=== PATIENT | female | born 1945 | race Caucasian/White ===

== ENCOUNTER 2019-05-26 23:57 | Inpatient (IN) | payer OTHER ==
[~2019-05-26] VITALS: Ht 160 cm; Wt 97.0 kg
[2019-05-27 00:16] LABS: BASOPHILS ABSOLUTE AUTO 0.06 K/mm3 (0.00-0.23); BASOPHILS PERCENT AUTO 1 % (0-2); EOSINOPHILS ABSOLUTE AUTO 0.52 K/mm3 (0.00-0.68); EOSINOPHILS PERCENT AUTO 4 % (0-6); Hematocrit 46.6 % (33.0-51.0); Hemoglobin 15.4 g/dL (11.5-16.0); IMMATURE GRAN ABSOLUTE AUTO 0.03 K/mm3 (0.00-0.10); IMMATURE GRAN PERCENT AUTO 0 % (0-1); LYMPHOCYTES ABSOLUTE AUTO 4.81 K/mm3 (0.84-5.20); LYMPHOCYTES PERCENT AUTO 41 % (21-46); MONOCYTES ABSOLUTE AUTO 1.07 K/mm3 (0.16-1.47); MONOCYTES PERCENT AUTO 9 % (4-13); Mean Corpuscular HGB 31.8 pg (26.0-34.0); Mean Corpuscular Volume 96 fL (80-100); Mean Platelet Volume 9.8 fL (9.1-12.4); NEUTROPHILS ABSOLUTE AUTO 5.27 K/mm3 (1.96-9.15); NEUTROPHILS PERCENT AUTO 45 % (41-73); Platelet Count 187 K/mm3 (150-400); RDW Coefficient Variation 14.2 % (11.7-14.2); RDW Standard Deviation 50.8 fL (35.1-46.3); Red Blood Cell Count 4.84 M/mm3 (3.80-5.20); White Blood Cell Count 11.76 K/mm3 (4.00-11.30)
[2019-05-27] MEDS ORDERED: SERT25 PO (00:33)
[2019-05-27] MEDS ORDERED: TRAZ50 PO (00:33)
[2019-05-27] MEDS ORDERED: DONE5 PO (00:33)
[2019-05-27] MEDS ORDERED: ROPI.25 PO (00:33)
[2019-05-27 00:37] LABS: Alanine Aminotransfer (ALT/SGP 19 U/L (12-78); Albumin, Blood 3.7 g/dL (3.4-5.0); Albumin/Globulin Ratio 1.1 (0.8-1.8); Alk Phos 76 U/L (50-136); Anion Gap 7 mmol/L (6-16); Aspartate Aminotrans (AST/SGOT 22 U/L (12-37); Bilirubin, Total 0.2 mg/dL (0.1-1.0); Blood Urea Nitrogen 20 mg/dL (8-24); Bun/Creatinine Ratio 25.1 (12.0-20.0); CO2, Blood 26 mmol/L (21-32); Calcium, Blood 10.7 mg/dL (8.5-10.1); Chloride, Blood 107 mmol/L (98-108); Globulin, Blood 3.5 g/dL (2.2-4.0); Glomerular Filtration Rate >60 (60-); Glucose, Blood 123 mg/dL (70-99); Potassium, Blood 4.4 mmol/L (3.5-5.5); Sodium, Blood 140 mmol/L (136-145); Total Protein, Blood 7.2 g/dL (6.4-8.2); Troponin I 0.111 ng/mL (0.000-0.040)
[2019-05-27 01:37] LABS: PCO2 Arterial 50.4 mmHg (35-45); PO2 Arterial 101 mmHg (80-100)
[2019-05-27 01:38] LABS: pH Blood Arterial 6.97 (7.35-7.45)
[2019-05-27 02:16] LABS: BASOPHILS PERCENT AUTO 1 % (0-2); EOSINOPHILS ABSOLUTE AUTO 0.49 K/mm3 (0.00-0.68); EOSINOPHILS PERCENT AUTO 3 % (0-6); Hematocrit 39.1 % (33.0-51.0); Hemoglobin 12.6 g/dL (11.5-16.0); IMMATURE GRAN ABSOLUTE AUTO 0.21 K/mm3 (0.00-0.10); IMMATURE GRAN PERCENT AUTO 1 % (0-1); LYMPHOCYTES PERCENT AUTO 35 % (21-46); MONOCYTES ABSOLUTE AUTO 1.08 K/mm3 (0.16-1.47); MONOCYTES PERCENT AUTO 6 % (4-13); Mean Corpuscular HGB Conc 32.2 g/dL (31.5-36.5); Mean Platelet Volume 10.3 fL (9.1-12.4); NEUTROPHILS PERCENT AUTO 55 % (41-73); Platelet Count 181 K/mm3 (150-400); RDW Coefficient Variation 14.3 % (11.7-14.2); RDW Standard Deviation 53.2 fL (35.1-46.3); Red Blood Cell Count 3.94 M/mm3 (3.80-5.20); White Blood Cell Count 17.58 K/mm3 (4.00-11.30)
[2019-05-27 02:17] LABS: Mean Corpuscular Volume 99 fL (80-100)
[2019-05-27 02:52] LABS: International Normalized Ratio 1.08; Prothrombin Time Results 11.4 Sec (9.7-11.5)
[2019-05-27 02:58] LABS: PO2 Arterial 72.3 mmHg (80-100)
--- NOTE | 2019-05-27 03:28 | NUR ---
UPDATE: PT TO ROOM AT APPRX 0214. PT NON-RESPONSIVE NOT SEDATED AT THAT TIME. PT ARRIVED WITH AMIODARONE gtt AT 1mg/min STARTED AT APPROX 0030. LEVOPHED gtt AT 15 mcg/min; AGGRISTAT AT 0.151 mcg/kg/min. SODIUM BICARB gtt STARTED, PROPOFOL gtt STARTED. DR. WASHINGTON TO BEDSIDE SHORTLY AFTER PT ARRIVAL. EKG DONE AND CALLED IN TO DR. BARTLETT. DR. WASHINGTON IN DEPARTMENT CALL TO DR. BARTLETT. TO COMMUNICATION WITH ONLY CHANGE WAS TO BICARG gtt RATE. NO FURTHER ORDERS GIVEN FROM DR. BARTLETT. PT'S DAUGHTER CURRENTLY AT BEDSIDE TO WHICH PT RESPONDED TO DAUGHTER'S QUESTION-PT SHOOK HER HEAD NO. VITALS CURRENTLY STABLE. PT'S CORE TEMP 95.[address] WASHINGTON STATEDS WOULD NOT NEED FURTHER COOLING. WILL CONTINUE TO MONITOR.
[2019-05-27 03:52] LABS: Troponin I 0.478 ng/mL (0.000-0.040)
[2019-05-27 03:54] LABS: Magnesium, Blood 2.1 mg/dL (1.6-2.4)
[2019-05-27 03:55] LABS: Alanine Aminotransfer (ALT/SGP 107 U/L (12-78); Albumin, Blood 2.3 g/dL (3.4-5.0); Alk Phos 51 U/L (50-136); Anion Gap 13 mmol/L (6-16); Aspartate Aminotrans (AST/SGOT 133 U/L (12-37); Bilirubin, Direct <0.1 mg/dL (0.0-0.3); Bilirubin, Indirect Unable to Calculate mg/dL (0.1-0.7); Bilirubin, Total 0.2 mg/dL (0.1-1.0); Blood Urea Nitrogen 19 mg/dL (8-24); Bun/Creatinine Ratio 26.2 (12.0-20.0); CO2, Blood 15 mmol/L (21-32); Chloride, Blood 114 mmol/L (98-108); Creatinine, Blood 0.73 mg/dL (0.40-1.00); Globulin, Blood 2.4 g/dL (2.2-4.0); Glomerular Filtration Rate >60 (60-); Glucose, Blood 287 mg/dL (70-99); Phosphorus, Blood 3.1 mg/dL (2.5-4.9); Potassium, Blood 3.2 mmol/L (3.5-5.5); Sodium, Blood 142 mmol/L (136-145)
[2019-05-27 03:56] LABS: Calcium, Blood 7.8 mg/dL (8.5-10.1); Total Protein, Blood 4.7 g/dL (6.4-8.2)
--- NOTE | 2019-05-27 05:23 | NUR ---
RHYTHM CONVERSION: PT RHYTHM CONVERTED TO SINUS RHYTHM HR 60'S, SEE RHYTHM STRIPS.
--- NOTE | 2019-05-27 06:19 | NUR ---
DR. WASHINGTON NOTIFIED: RE: LACTIC ACID RESULTS OF 3.2 AND SECOND 4.3. NO NEW ORDERS AT THIS TIME.
--- NOTE | 2019-05-27 07:15 | NUR ---
ASSUMED CARE REPORT FROM OFF GOING RN. PT. VIN IN BED, NO PURPOSEFUL MOVEMENT AT THIS TIME, DOES WITHDRAW FROM PAINFUL STIMULI. PT SEDATED AND INTUBATED, AC 16, TV 420, 50%, PEEP 5. SHEATH IN PLACE TO LLQ ALONG WITH CENTRAL LINE, SOFT AROUND SITE, SMALL AMOUNT OF OOZING NOTED. PT. HAS ART LINE IN PLACE. LEVOPHED CURRENTLY INFUSING AT 10MCG/KG/MIN, AMIO GTT INFUSING AT 0.5MG/MIN, AGGRESTAT 0.151 MCG/KG/MIN, AND SODIUM BICARB INFUSING AT 75ML/HR WITH LR AT 75ML/HR. PROPFOL INFUSING AT 30MCG/KG/MIN. PT. BECOMING RESTLESS IN BED, MEDICATED WITH 50MCG AND PROPOFOL INCREASED TO 40MCG/KG/MIN. PT LOG ROLLED TO REMOVE EXCESS LINEN. PT. HAS BETTS IN PLACE DRAINING TO GRAVITY. PT TEMP 97.9 THIS AM, COOLING MEASURES TO BE INITIATED.
--- NOTE | 2019-05-27 07:29 | NUR ---
REPORT GIVEN TO INDIGO BUTLER AND HOWARD BUTLER. BEDSIDE, CL AND GTTS ASSESSED. PT TEMP TRENDING UP. COOLING PUMP IN ROOM FOR SET UP. PT'S DAUGHTER CONTINUES IN ROOM.
--- NOTE | 2019-05-27 07:40 | NUR ---
DIFFICULTY GETTING A GOOD ART LINE READING AT THIS TIME ART LINE ZEROED AND FLUSHED, UNABLE TO WITHDRAW BL0OD VIA SAFESET. ABD. NOW HAS HARD SOFTBALL SIZED KNOT FORMING TO LEFT ABD. PRESSURE HELD AT THIS TIME TO SITE. CALL TO DR. WASHINGTON TO UPDATE AT THIS TIME, JAMAL RN TO PLACE PICC LINE AT THIS TIME, CALL TO DR. BARTLETT TO UPDATE ON HEMATOMA, AGGRASTAT DC'D AT 0742 PRESSURE CONTINUES TO BE HELD. CLAIM APPROVER CALLED TO ASSESS SHEATH PLACMENT. LEVOPHED GTT INCREASED TO 15MCG/KG/MIN, PT BECOMING INCREASINGLY HYPOTENSIVE SEE FLOWSHEET. JAMAL BUTLER AT BEDSIDE TO PLACE PICC LINE AT 0750. LEVOPHED GTT INCREASED TO 20MCG/KG/MIN AT THIS TIME. UNABLE TO OBTAIN PERIPHERAL BP. PT HAS VERY FAINT PULSES TO RADIALS BILAT. MANUAL BP ATTEMPTED UNABLE TO OBTAIN. [address], LEVOPHED GTT PLACED TO PICC LINE AND 500CC BOLUS INTITATED. XRAY AT BEDSIDE FOR LINE PLACEMENT.
--- NOTE | 2019-05-27 08:58 | NUR ---
HYPOTENSIVE DR. WASHINGTON AT BEDSIDE. DOPAMINE GTT INTITATED AT 5MCG/KG/MIN. GLASS FINISHER AT BEDSIDE. DOPAMIN TO BE TTITRATED FOR MAP >65. FIRST ASSIST STAFF AT BEDSIDE TO EVALUATE SHEATH PLACEMENT AND SITE AT THIS TIME. HEMATOMA IMPROVING, PT NO JUST HAS A SMALL HARD KNOT TO LLQ. PICC LINE VERIFIED VIA XRAY. PT OOZING FROM SITE. EXTREMITIES COLD TO TOUCH. PT. CONTINUES TO BANUELOS. FAMILY REMAINS AT BEDSIDE. COOLING BLANKETS IN PLACE.
[2019-05-27 09:19] LABS: BASOPHILS ABSOLUTE AUTO 0.07 K/mm3 (0.00-0.23); BASOPHILS PERCENT AUTO 0 % (0-2); EOSINOPHILS ABSOLUTE AUTO 0.03 K/mm3 (0.00-0.68); EOSINOPHILS PERCENT AUTO 0 % (0-6); Hematocrit 37.3 % (33.0-51.0); Hemoglobin 12.2 g/dL (11.5-16.0); IMMATURE GRAN ABSOLUTE AUTO 0.22 K/mm3 (0.00-0.10); IMMATURE GRAN PERCENT AUTO 1 % (0-1); LYMPHOCYTES ABSOLUTE AUTO 2.63 K/mm3 (0.84-5.20); LYMPHOCYTES PERCENT AUTO 11 % (21-46); MONOCYTES ABSOLUTE AUTO 2.87 K/mm3 (0.16-1.47); MONOCYTES PERCENT AUTO 12 % (4-13); Mean Corpuscular HGB 32.1 pg (26.0-34.0); Mean Corpuscular HGB Conc 32.7 g/dL (31.5-36.5); Mean Corpuscular Volume 98 fL (80-100); Mean Platelet Volume 10.1 fL (9.1-12.4); NEUTROPHILS ABSOLUTE AUTO 18.35 K/mm3 (1.96-9.15); NEUTROPHILS PERCENT AUTO 76 % (41-73); Platelet Count 268 K/mm3 (150-400); RDW Coefficient Variation 14.6 % (11.7-14.2); RDW Standard Deviation 53.1 fL (35.1-46.3); White Blood Cell Count 24.17 K/mm3 (4.00-11.30)
[2019-05-27 09:28] LABS: PCO2 Arterial 45.4 mmHg (35-45); PO2 Arterial 63.4 mmHg (80-100); pH Blood Arterial 7.32 (7.35-7.45)
[2019-05-27 09:47] LABS: Bun/Creatinine Ratio 17.3 (12.0-20.0); Calcium, Blood 8.3 mg/dL (8.5-10.1); Creatinine, Blood 1.1 mg/dL (0.40-1.00); Phosphorus, Blood 2.3 mg/dL (2.5-4.9); Potassium, Blood 3.8 mmol/L (3.5-5.5)
--- NOTE | 2019-05-27 10:39 | NUR ---
FAMILY UPDATED ON CONDITION FAMILY ASSISTED TO FILL OUT CONTACT LIST. PT SON SAM TO BE PRIMARY CONTACT AND TO UPDATE FAMILY MEMBERS.
--- NOTE | 2019-05-27 10:45 | NUR ---
echocardiogram completed
--- NOTE | 2019-05-27 14:00 | NUR ---
DR. BARTLETT AT BEDSIDE PER RN REQUEST TO REASSESS SHEATH, AND DISCUSS PLANS FOR REMOVAL. SHEATH HAS REMAINED SALINE LOCKED SINCE THIS AM WHEN ARTLINE WAS NO LONGER READING, UNABLE TO ASPIRIATE FROM SHEATH. PER. DR. BARTLETT OKAY TO PULL SHEATH AT THIS TIME. PTT TO BE OBTAINED FIRST. CLARIFIED WITH DR. BARTLETT THAT THIS RN DID NOT FEEL COMFORTABLE PULLING THE SHEATH DUE TO LOCATION. WOMEN'S STUDIES PROFESSOR STAFF TO ASSIST THIS RN WITH SHEATH PULL.
--- NOTE | 2019-05-27 14:33 | NUR ---
Initial Pal Care assessment. Referral received from HEAVY THREADER this am and request for visit taylor. Pt is a 74 yr old female who was brought to ER and found to be experiencing a STEMI. On the way to the boat laborer pt had v-tach and underwent both shocks and also CPR in ER before getting to boat laborer and undergoing stenting. Pt currently in ICU, vented, sedated, was following commands of squeezing RN's hand prior to increased sedation. BP was extremely low after procedure and pressors started. RN reports that Kailee, who was at bedside this am was distraught. There are multiple children (5), grandchildren gathering. When I arrived, pt's kailee, who was having difficulty processing and understanding all that occured had left. Present, were pt's son, dil and granddaughter. I introduced myself and spoke with family for a few minutes, offered support and encouragement. Son has some medical backround and all three family members were calm, supporting each other and speaking to pt, despite sedation. Pt assessed. She did not appear to be in pain or distress at that time. RN reported she had been medicated for pain earlier. Family aware that the next 24-48 hours of "wait and see" period is critical for pt. Instructed family that we would be checking in daily for support and assist as indicated/needed and would return upon request. Son given instructions on how to reach us by phone or thru staff. Talent Development Director notified of potential need for additional support to family also.
--- NOTE | 2019-05-27 17:26 | NUR ---
CLAIMS AUDITOR STAFF AT BEDSIDE TO ASSESS SHEATH STAFF NOT FEELING COMFORTABLE WITH SHEATH PULL DUE TO LOCATION UNLESS DRJacky AT BEDSIDE. CALL TO DR. BARTLETT TO DISCUSS SHEATH PULL AGAIN. PER DR. BARTLETT PLANS TO PULL SHEATH IN THE AM HOWEVER AFTER FURTHER DISCUSSION REGARDING THE SHEATH, BEING UNABLE TO ASPIRATE FROM SHEATH, AND PT NOT CURRENTLY ON ANY HEAPRIN OR AGGRASTAT. PLANS FOR TO COME TO BEDSIDE THIS PM AND PULL SHEATH.
--- NOTE | 2019-05-27 17:30 | NUR ---
CALL PLACED TO DR WASHINGTON Notified provider of pt's CBG. Orders given for insulin. PTT pending. Awaiting Dr Lan for arterial sheath removal. No family members in room at this time.
--- NOTE | 2019-05-27 18:13 | NUR ---
DR. BARTLETT AT BEDSIDE. HEMATOMA THAT WAS PREVIOUSLY IDENTIFIED MARKED 6INCH LONG BY APPROX 2.5INCH WIDE ALONG LLQ. DR. BARTLETT INITIATED SHEATH PULL. PRESSURE HELD MANUALLY BY DR. BARTLETT THEN HAND OFF TO HEART CENTER STAFF CINDY. DR. BARTLETT REMAINS AT BEDSIDE DURING SHEATH PULL, CENTRAL LINE PULLED SHORTLY AFTER ARTLINE PULLED BY DR. BARTLETT. MANUAL PRESSURE HELD BY INDIGO BUTLER AND CINDY HEMOSTATIS AFTER 30MIN VIA MANUAL PRESSURE. VERIFIED WITH HEART CENTER STAFF AND DR. BARTLETT. PLANS FOR FREQUENT H&HS Q2 HR TO MONITOR FOR BLEEDING ALONG WITH MANUAL OBSERVATION. ARACELY DRESSING ALONG WITH CLEAR OCCLUSIVE DRESSING IN PLACE. NO FURTHER HEMATOMA NOTED, ABD SOFT. PT REMAINS ON PRESSORS HOWEVER UNCHANGED FROM PRIOR TO SHEATH PULL. PT MEDICATED WITH 50MCG OF FENTANYL DURING SHEATH PULL DUE TO RESTLESSNESS AND COUGHING.
[2019-05-27 18:26] LABS: Hematocrit 35.4 % (33.0-51.0); Hemoglobin 11.8 g/dL (11.5-16.0)
--- NOTE | 2019-05-27 18:42 | NUR ---
SUMMARY At this time, pt on 20 mcg/min of levophed, 2.5 mcg/kg/min dopamine, amiodarone 0.5mg/hr. SBP averaging between 90 and 110. Pt converts between sinus rhythm/sinus bradycardia and atrial fibrillation. 3-7 beat runs of wide QRS tachycardia noted intermittently t/o shift. Pt remains on 40 mcg/kg/min propofol. Ventilator AC 16, vT 420, FiO2 50%, PEEP 5. SpO2 90% or greater. Small amount of red sputum from in-line suction. Hematoma noted to left groin this AM has improved. Hematoma marked prior to removal of femoral arterial sheath and femoral venous central line. No leakage noted to site. PICC to BHAVESH. Significant leakage noted from site. One dressing change performed. Small amount of leakage noted since dressing change. Pt has not had a BM this shift. Pt has had 650 mL urine output from mitchell catheter. Will continue to closely monitor until care handoff and bedside report with oncoming RN. Cooling blanket remains in place. Temp 97.2 currently.
--- NOTE | 2019-05-27 18:45 | NUR ---
WASTE DOCUMENTATION 50MCG OF FENTANYL WAS PULLED BY JAMLA BUTLER FOR ADDITIONAL SEDATION HOWEVER DID NOT END UP NEEDING. WASTED WITH HOWARD BUTLER.
[2019-05-27 20:29] LABS: Hematocrit 33.6 % (33.0-51.0); Hemoglobin 11.3 g/dL (11.5-16.0)
--- NOTE | 2019-05-27 21:25 | NUR ---
[place] of Care: Care assumed at 1900hr. Patient intubated with 7.5 ETT, 23 at teeth. Ventilator to AC 14/420/5/50%, O2-96-98%. Patient appeared to attempt to open eyes to verbal stimuli, and withdraws to painful stimuli, not following any commands. Propofol at 40mcg/kg/min, and x1 dose prn fentanyl given for s/s of pain/discomfort, good effect noted. Levophed infusing at 20mcg/min, and Dopamine at 2.5mcg/kg/min, BP and HR stable at this time, will continue to monitor and titrate as indicated. LR infusing at 75ml/hr, and Sodium Bicarb infusing at 75ml/hr. PICC line to BHAVESH patent and intact, infusing without difficulty. OG tube turned to continuos suction for approx 2min at shift change, small amount of brown drainage noted. OG then clamped after administering PT scheduled medications. Hearth rhythm shows A-fib, rate 60's-70's. Khan cath patent and intact, draining clear yellow urine, adequate output noted at this time. Family at bedside. Bilateral soft wrist restraints in place to protect lines, tubes, cords. Will continue to monitor for pain, safety, comfort.
[2019-05-27 23:22] LABS: Hematocrit 31.4 % (33.0-51.0); Hemoglobin 10.7 g/dL (11.5-16.0)
[2019-05-28 02:15] LABS: Hemoglobin 10.4 g/dL (11.5-16.0)
[2019-05-28 04:45] LABS: BASOPHILS ABSOLUTE AUTO 0.06 K/mm3 (0.00-0.23); BASOPHILS PERCENT AUTO 0 % (0-2); EOSINOPHILS ABSOLUTE AUTO 0.19 K/mm3 (0.00-0.68); EOSINOPHILS PERCENT AUTO 1 % (0-6); Hematocrit 29.4 % (33.0-51.0); Hemoglobin 9.9 g/dL (11.5-16.0); IMMATURE GRAN ABSOLUTE AUTO 0.05 K/mm3 (0.00-0.10); IMMATURE GRAN PERCENT AUTO 0 % (0-1); LYMPHOCYTES ABSOLUTE AUTO 3.62 K/mm3 (0.84-5.20); LYMPHOCYTES PERCENT AUTO 21 % (21-46); MONOCYTES ABSOLUTE AUTO 2.15 K/mm3 (0.16-1.47); MONOCYTES PERCENT AUTO 12 % (4-13); Mean Corpuscular HGB 31.8 pg (26.0-34.0); Mean Corpuscular HGB Conc 34.1 g/dL (31.5-36.5); NEUTROPHILS ABSOLUTE AUTO 11.32 K/mm3 (1.96-9.15); NEUTROPHILS PERCENT AUTO 65 % (41-73); Platelet Count 177 K/mm3 (150-400); RDW Coefficient Variation 13.9 % (11.7-14.2); RDW Standard Deviation 47.7 fL (35.1-46.3); Red Blood Cell Count 3.11 M/mm3 (3.80-5.20); White Blood Cell Count 17.39 K/mm3 (4.00-11.30)
[2019-05-28 04:47] LABS: Mean Corpuscular Volume 93 fL (80-100)
[2019-05-28 04:52] LABS: PCO2 Arterial 43.7 mmHg (35-45); PO2 Arterial 61.7 mmHg (80-100); pH Blood Arterial 7.45 (7.35-7.45)
[2019-05-28 05:03] LABS: Alanine Aminotransfer (ALT/SGP 104 U/L (12-78); Albumin, Blood 2.3 g/dL (3.4-5.0); Albumin/Globulin Ratio 0.9 (0.8-1.8); Alk Phos 59 U/L (50-136); Anion Gap 6 mmol/L (6-16); Aspartate Aminotrans (AST/SGOT 179 U/L (12-37); Bilirubin, Total 0.4 mg/dL (0.1-1.0); Blood Urea Nitrogen 16 mg/dL (8-24); Bun/Creatinine Ratio 17.7 (12.0-20.0); CO2, Blood 31 mmol/L (21-32); Calcium, Blood 8.5 mg/dL (8.5-10.1); Chloride, Blood 105 mmol/L (98-108); Creatinine, Blood 0.91 mg/dL (0.40-1.00); Globulin, Blood 2.6 g/dL (2.2-4.0); Glomerular Filtration Rate >60 (60-); Glucose, Blood 158 mg/dL (70-99); Magnesium, Blood 1.9 mg/dL (1.6-2.4); Phosphorus, Blood 2.5 mg/dL (2.5-4.9); Potassium, Blood 3.2 mmol/L (3.5-5.5); Sodium, Blood 142 mmol/L (136-145); Total Protein, Blood 4.9 g/dL (6.4-8.2)
--- NOTE | 2019-05-28 06:15 | NUR ---
Shift Summary: Remains intubated, AC- 14/420/5/40-45%, O2-94-98%. Propofol gtt increased from 40mcg to 50mcg/kg/min throughout shift. Patient able to wake (on 40mcg/kg/min propofol), and follow commands (squeeze hands, nod head), but becomes very restless, thrashing in bed and difficult to calm. Increase in propofol and x3-4 doses of prn fentanyl effective to calm patient. VSS throughout shift. Levophed gtt decreased from 20mcg/min to 16mcg/min (see flowsheet), Dopamine gtt remained at 2.5mcg/kg/min throughout shift. Khan cath remains patent and intact, draining light yellow clear urine, approx 2400ml output this shift. PICC line to BHAVESH remains patent and intact. Bilateral groin sites remain wnl, no s/s of active bleeding noted. Patient appears calm and comfortable at this time. Will continue to monitor until report to day shift RN.
[2019-05-28 06:49] LABS: Hematocrit 28.2 % (33.0-51.0); Hemoglobin 9.5 g/dL (11.5-16.0)
--- NOTE | 2019-05-28 07:15 | NUR ---
BEGINNING OF SHIFT Assumed care at 0700 with Asia BUTLER. Bedside report recieved from Christian BUTLER. Pt agitated, pulling on restraints. Ativan and fentanyl administered. Cooling blanket in place. Plans to ask provider if blanket is to be removed as it has been in place for 24 hours.
--- NOTE | 2019-05-28 07:45 | NUR ---
DAUGHTER AT BEDSIDE Pt's daughter, Christine, at bedside. Daughter inquires about medications pt is receiving and cooling blanket. Update provided.
[2019-05-28 08:30] LABS: Hematocrit 28.5 % (33.0-51.0); Hemoglobin 9.6 g/dL (11.5-16.0)
--- NOTE | 2019-05-28 10:10 | NUR ---
PT'S GTT'S AND GROIN SITES CHECKED WITH NOCT RN. LEVOPHED AT 16MCG, DOPAMINE AT 2.5MCG, BICARB GTT AND LR INFUSING. BP STABLE W MAPS >65. LEFT GROIN/ABD HEMATOMA UNCHANGED FROM NOCT RN'S ASSESSMENT. PT GRIMACES WITH LIGHT PALP TO AREA. PT'S HEAD TURNING FROM SIDE TO SIDE, PT VERY RESTLESS. PROPOFOL AT 50MCG. ATIVAN 2MG AND FENT 50MCG GIVEN FOR PAIN AND SEDATION. COOLING BLANKET ON, CORE TEMP READING 97. SKIN VERY COOL WITH POOR PERIPHERAL PERFUSION T/O. DR BARTLETT IN TO SEE PT THIS AM, AND SPOKE TO PT'S DAUGHTER WHOM IS AT BEDSIDE. DR WASHINGTON IN THIS AM TO SEE PT. K+ WILL BE REPLACED. COLLING BLANKET ROMOVED, WILL BEGIN PASIVE REWARMING. TF TO BE STARTED. DAUGHTER AGAIN UPDATED BY DR WASHINGTON.
--- NOTE | 2019-05-28 11:22 | NUR ---
UPDATE Dr Lan in to see pt at 0920. Disucussed groin site. Discussed blood pressure support. Updated provider that pt has remained in sinus rhythm for previous shift and is no longer having runs of wide QRS tachycardia. This RN inquired about amiodarone as it has been infusing at 0.5 mg/min for [address] Lan stated he would like amiodarone to remain in place until pt is extubated and vasopressors have been decreased. Levophed infusing at 16 mcg/min. Dopamine 2.5 mcg/kg/min. MAP averaging between 65 and 70. HR averaging between 70 [address] 80[address] Pardo in to see pt around 0945. Provider updated that pt has woken up and followed commands on 40 mcg/kg/min propofol per previous shift. Provider stated plan to begin rewarming. Cooling blanket removed. Hypokalemia discussed. New orders entered by provider. Provider also states plan to begin tube feedings. At this time, pt's daughter has departed. No family at bedside at this time. Temp 97.3 per temp mitchell.
--- NOTE | 2019-05-28 12:10 | NUR ---
UPDATE Pt's son, Eliseo, called unit for update. Update provided.
--- NOTE | 2019-05-28 14:00 | NUR ---
UPDATE Levophed down to 14 mcg/min. MAP averaging between 65 and 70. Pt's son at bedside. Updated on plan of care.
--- NOTE | 2019-05-28 16:44 | NUR ---
CALL PLACED TO DR WASHINGTON This RN placed call to Dr Washington at 1635 to notify that pt is febrile, with temp of 100.4 per temp mitchell. New orders received. Discussed that pt is not on antibiotics. Sputum culture pending.
--- NOTE | 2019-05-28 17:43 | NUR ---
Pal Spiritual Care intial visit: I met with pts dtr at bedside. She later told me she "is not actually her dtr" but feels like pt has been "like a mom" to her. She also told me that pt has recently become a Mandaen. We prayed together at bedside for pt's continued healing. No concerns or fears presented dtr told me that family is releived pt is going to survive. Mrs. Patel appeared comfortable and non-responsive throughout visit. Health Information Technologist Services will remain available.
--- NOTE | 2019-05-28 17:56 | NUR ---
DR WASHINGTON IN TO SEE PT Provider at bedside at 1715 to round on pt. Discussed fever. No new orders at this time.
--- NOTE | 2019-05-28 18:40 | NUR ---
SUMMARY Pt has not followed commands this shift. Pt on proprofol 40 mcg/kg/min. Pt has received ativan and fentanyl for agitation, tossing head back and forth, and pulling on restraints. Pt remains on vent AC 16, vT 420, PEEP 5, FiO2 45%. SpO2 90% or greater. Scant amount of bloody sputum from in-line suctions. Pt has been in sinus rhythm for entire shift. No episodes of wide QRS tachycardia. Remains on amiodarone 0.5 mg/min, levophed 14 mcg/min, dopamine 2.5 mcg/kg/min. No changes to bilateral groin sites. PAS for VTE prophylaxis.
--- NOTE | 2019-05-28 19:18 | NUR ---
[place] of Care: Patient intubated, sedated with propofol at 40mcg/kg/min. Ventilator to AC-14/420/5/40%, O2-98-100%, ETT 7.5, 23cm at lip. Patient appears calm and comfortable at this time, responds to painful stimuli, but not following any commands at this time. Dopamine gtt at 2.5 mcg/kg/min, Levophed increased from 14 to 16mcg/min per MAP of 49, will continue to monitor and titrate as indicated. Tube feed per OG tube is Vital High protein at 20ml/hr, with 30ml/4hr H2O flush. Will increase tube feed to goal of 25ml/hr at approx 0100hr if no s/s of GI intolerance. Bilateral groin access sites appear wnl, no s/s of active bleeding/hematoma. Will continue to monitor for pain, comfort, safety.
[2019-05-29 04:38] LABS: BASOPHILS ABSOLUTE AUTO 0.06 K/mm3 (0.00-0.23); BASOPHILS PERCENT AUTO 1 % (0-2); EOSINOPHILS ABSOLUTE AUTO 0.28 K/mm3 (0.00-0.68); EOSINOPHILS PERCENT AUTO 2 % (0-6); IMMATURE GRAN ABSOLUTE AUTO 0.04 K/mm3 (0.00-0.10); IMMATURE GRAN PERCENT AUTO 0 % (0-1); LYMPHOCYTES ABSOLUTE AUTO 2.35 K/mm3 (0.84-5.20); LYMPHOCYTES PERCENT AUTO 19 % (21-46); MONOCYTES ABSOLUTE AUTO 1.21 K/mm3 (0.16-1.47); MONOCYTES PERCENT AUTO 10 % (4-13); Mean Corpuscular HGB 31.4 pg (26.0-34.0); Mean Corpuscular HGB Conc 33.3 g/dL (31.5-36.5); Mean Corpuscular Volume 94 fL (80-100); Mean Platelet Volume 9.9 fL (9.1-12.4); NEUTROPHILS ABSOLUTE AUTO 8.26 K/mm3 (1.96-9.15); NEUTROPHILS PERCENT AUTO 68 % (41-73); Platelet Count 141 K/mm3 (150-400); RDW Coefficient Variation 14.5 % (11.7-14.2); RDW Standard Deviation 49.7 fL (35.1-46.3); Red Blood Cell Count 2.55 M/mm3 (3.80-5.20)
[2019-05-29 05:03] LABS: PCO2 Arterial 45.2 mmHg (35-45); PO2 Arterial 66.5 mmHg (80-100); pH Blood Arterial 7.45 (7.35-7.45)
[2019-05-29 05:04] LABS: Magnesium, Blood 1.8 mg/dL (1.6-2.4)
[2019-05-29 05:05] LABS: Albumin, Blood 2.2 g/dL (3.4-5.0); Albumin/Globulin Ratio 0.8 (0.8-1.8); Bilirubin, Total 0.7 mg/dL (0.1-1.0); Bun/Creatinine Ratio 12.4 (12.0-20.0); Calcium, Blood 8.8 mg/dL (8.5-10.1); Creatinine, Blood 0.97 mg/dL (0.40-1.00); Globulin, Blood 2.7 g/dL (2.2-4.0); Phosphorus, Blood 1.8 mg/dL (2.5-4.9); Potassium, Blood 3.2 mmol/L (3.5-5.5); Total Protein, Blood 4.9 g/dL (6.4-8.2)
--- NOTE | 2019-05-29 06:33 | NUR ---
Shift Summary: Patient remains intubated/sedated. Propofol titrated between 35-50mcg/kg/min throughout shift. Ventilator to AC 16/420/5/45%, O2-96-100% Tolerated spontaneous breathing trial without difficulty, tidal volumes, respiratory rate, and VS wnl throughout 45-60min trial. Sedation turned off for approx 1hr throughout trial. patient became slightly restless in bed, attempted to open eyes, but otherwise not deirdre to follow any commands. Prn fentanyl and Ativan given x3 this shift for s/s of pain, agitation, restlessness with good effect noted. Levophed titrated down from 16 to 10mcg/min throughout shift, then titrated back up to 14mcg/min at end of shift after placing Dopamine gtt on stand-by. Khan cath remains patent and intact, draining clear yellow urine. PICC line remains patent and intact, infusing medication without difficulty. 30mm kphos ordered per electrolyte protocol this morning, infusing at this time. Patient appears calm and comfortable, will continue to monitor until report to day shift RN.
--- NOTE | 2019-05-29 11:20 | NUR ---
0730: Care assumed, assessment completed. Vent settings AC 16, Vt 420, PEEP 5, FiO2 40%, pt's RR 16, Vt 400's. Propofol 35mcg, levophed 14mcg, LR 75ml/hr, amiodarone 0.5mg, sodium phosphate 102ml/hr, vital high protein 30ml/hr. Pt appears to be adequately sedated, no agitation or restlessness noted, gross movement in all extrems, pt does not open eyes. Daughter at bedside. 0900: Dr. Jimenez at bedside, propofol off for sedation vacation. 0935: Pt becoming agitated, turning head back and forth, moving hands and feet, does not open eyes. No tracking or following commands at this time, propofol infusion resumed at 35mcg. Daughter remains at bedside. 1100: Propofol off again per Dr. Jimenez, levophed increased to 15mcg for MAP <60. Other VSS. Vent settings unchanged, pt's RR 16 at this time.
--- NOTE | 2019-05-29 13:32 | NUR ---
PROPOFOL REMAINS OFF PER DR. ROLAND, FENTANYL AND ATIVAN PRN FOR COMFORT/AGITATION. PT RESTING QUIETLY AT THIS TIME, NO AGITATION OR RESTLESSNESS NOTED. VENT SETTINGS UNCHANGED. PRBC UNIT #1 INFUSING AT THIS TIME PER ORDERS, TEMP 100.2 PER TEMP PROBE BETTS PRIOR TO INITIATING PRBC INFUSION. TITRATING LEVOPHED DOWN ABLE.
--- NOTE | 2019-05-29 18:16 | NUR ---
1530: FIRST UNIT PRBC'S INFUSED WITHOUT S/SX REACTION, VSS. TITRATING LEVOPHED DOWN, PT TOLERATING WELL. PT RESTING, MEDICATING WITH FENTANYL AND ATIVAN ORDERED. 1814: SECOND UNIT PRBC'S INFUSING PER ORDERS. PT RESTING IN BED, LEVO AT 2MCG, BP STABLE. VENT SETTINGS UNCHANGED, PROPOFOL REMAINS OFF.
--- NOTE | 2019-05-29 18:42 | NUR ---
PT MEDICATED FOR RESTLESSNESS/AGITATION. LEVOPHED OFF, NEXT MAP 55, LEVOPHED RESUMED AT THIS TIME AT 2MCG. AMIODARONE INFUSING AT 0.5MG, DOPAMINE AND PROPOFOL REMAIN OFF. SECOND UNIT PRBC'S INFUSING WITHOUT DIFFICULTY, NO S/SX TRANSFUSION REACTION AFTER FIRST 15 MINUTES. VENT SETTINGS UNCHANGED, PT TOLERATING WELL WITH FENTANYL AND ATIVAN. AC 16, Vt 420, PEEP 5, FIO2 40%. PT FEBRILE T/O DAY, TMAX 100.4, COOL WASHCLOTHS, ICE PACKS TO UNDERARMS, AND FAN ON INTERMITTENTLY T/O SHIFT, NO BLANKETS. PT WITHDRAWING FROM NOXIOUS STIMULI, OPENS EYES OCCASIONALLY, NO TRACKING OR FOLLOWING COMMANDS NOTED THIS SHIFT. GROIN ACCESS SITES REMAIN UNCHANGED FROM THIS AM. TF TOLERATED WELL AT 30ML/HR, RESIDUALS MINIMAL. REPORT TO ONCOMING SHIFT.
--- NOTE | 2019-05-29 21:00 | NUR ---
ASSUMED PT CARE AT 1915 PT INTUBATED WITH VENT SETTINGS: AC 16, TV 420, FIO2 30%, PEEP 5 WITH OXYGEN SATURATIONS MAINTAINING GREATER THAN 91%. PT HAS A 7.5 ETT; THAT IS NOTED TO BE 23CM AT THE LIP; 22CM AT THE GUM LINE. PRODUCTIVE COUGH NOTED TO HAVE MODERATE AMOUNTS OF THICK BROWN/YELLOW SPUTUM WITH STREAKS OF BLOOD NOTED WELL. LUNG SOUNDS ARE COARSE T/O, BUT CLEAR/DIMINISHED AFTER SUCTIONING. PT REMAINS RESPONSIVE TO PAINFUL STIMULI; NO NOTED PURPOSEFUL MOVEMENTS OR ANY FOLLOWING OF COMMANDS. PUPILS PINPOINT AND GAZE BACK AND FORTH TO BOTH SIDES, BUT DOES NOT TRACK WITH HER EYES. PROPFOL HAS BEEN OFF; UTILIZING FENTANYL AND ATIVAN ADJUNCT SEDATION. LEVOPHED AT 2 MCG/MIN WITH LAST UNIT OF BLOOD TRANSFUSING TO HELP SUPPORT BLOOD PRESSURE. LR AT 75MLS/HR. AMIODARONE AT 0.5 MG/MIN. TEMP BETTS IS PATENT AND DRAINING TO GRAVITY WITH TEMPERATURE NOTED TO BE 100.0; ICE PACKS NOTED UNDER BILATERAL ARMPITS. FAMILY HAS BEEN IN AND OUT OF ROOM. PT APPEARS TO BE COMFORTABLE AT THIS TIME. NO SIGNIFICANT CHANGES TO REPORT.
[2019-05-30 04:13] LABS: BASOPHILS ABSOLUTE AUTO 0.02 K/mm3 (0.00-0.23); BASOPHILS PERCENT AUTO 0 % (0-2); EOSINOPHILS ABSOLUTE AUTO 0.18 K/mm3 (0.00-0.68); EOSINOPHILS PERCENT AUTO 2 % (0-6); Hematocrit 24.7 % (33.0-51.0); Hemoglobin 8.4 g/dL (11.5-16.0); IMMATURE GRAN ABSOLUTE AUTO 0.07 K/mm3 (0.00-0.10); IMMATURE GRAN PERCENT AUTO 1 % (0-1); LYMPHOCYTES ABSOLUTE AUTO 1.98 K/mm3 (0.84-5.20); LYMPHOCYTES PERCENT AUTO 21 % (21-46); MONOCYTES ABSOLUTE AUTO 0.78 K/mm3 (0.16-1.47); MONOCYTES PERCENT AUTO 8 % (4-13); Mean Corpuscular HGB 31.7 pg (26.0-34.0); Mean Corpuscular Volume 93 fL (80-100); Mean Platelet Volume 10.3 fL (9.1-12.4); NEUTROPHILS ABSOLUTE AUTO 6.27 K/mm3 (1.96-9.15); NEUTROPHILS PERCENT AUTO 67 % (41-73); Platelet Count 100 K/mm3 (150-400); RDW Coefficient Variation 16.2 % (11.7-14.2); RDW Standard Deviation 54.8 fL (35.1-46.3); Red Blood Cell Count 2.65 M/mm3 (3.80-5.20)
[2019-05-30 04:29] LABS: Anion Gap 6 mmol/L (6-16); Blood Urea Nitrogen 14 mg/dL (8-24); Bun/Creatinine Ratio 16.4 (12.0-20.0); CO2, Blood 26 mmol/L (21-32); Calcium, Blood 8.8 mg/dL (8.5-10.1); Chloride, Blood 107 mmol/L (98-108); Creatinine, Blood 0.86 mg/dL (0.40-1.00); Glomerular Filtration Rate >60 (60-); Glucose, Blood 126 mg/dL (70-99); Magnesium, Blood 1.7 mg/dL (1.6-2.4); Phosphorus, Blood 2.5 mg/dL (2.5-4.9); Potassium, Blood 3.5 mmol/L (3.5-5.5); Sodium, Blood 139 mmol/L (136-145)
--- NOTE | 2019-05-30 06:02 | NUR ---
END OF SHIFT SUMMARY/ SBT PT REMAINS INTUBATED WITH NO CHANGES TO VENT SETTINGS. FAILED SBT THIS MORNING PT WASN'T ABLE TO FOLLOW ANY COMMANDS, NOR PULL TIDAL VOLUMES GREATER THAN 250 WITH RR GREATER THAN 30 WITH PRESSURE SUPPORT OF 7. AFTER A FEW MINUTES OF SBT PT WAS PLACED BACK ON AC MODE. PT HAS REMAINED OFF PROPOFOL T/O SHIFT; MEDICATED WITH FENTANYL AND ATIVAN NEEDED FOR ADJUNCT SEDATION. PUPILS REMAIN PIN POINT WITH GAZE BACK AND FORTH FROM LEFT TO RIGHT; NO TRACKING NOTED. LUNG SOUNDS HAVE BEEN COARSE T/O WITH EXPIRATORY WHEEZES NOTED OCCASIONALLY, BUT ABLE TO CLEAR AFTER SUCTIONING. PT CONTINUES TO PRODUCE MODERATE AMOUNTS OF BROWN, THICK SPUTUM WITH STREAKS OF BLOOD NOTED WELL. PT REMAINS IN NSR WITH FIRST DEGREE AV BLOCK NOTED WITH HR 80-90'S. PT REMAINS VERY EDEMATOUS WITH EXTREMITIES ELEVATED ON PILLOWS MOST OF NIGHT. TMAX OF 100.6; PLACED ICE PACKS UNDER ARMPITS, LEFT UNCOVERED ALL NIGHT WITH FAN ON PT'S FACE, WELL REMOVED SCD'S TO BILATERAL CALVES TO HELP COOL DOWN. PT'S TEMP WAS NOTED TO BE LOW 99.6, BUT QUICKLY INCREASED BACK UP TO 100.6. PT HAS HAD TWO LOOSE BM'S THIS SHIFT. LEVOPHED TITRATED OFF AT ONE POINT THIS SHIFT, BUT CURRENTLY BACK UP TO 2 MCG/MIN WITH MAP >65 MMHG. LR CONTINUES AT 75MLS/HR. AMIODARONE AT 0.5 MG/MIN. REPLACED POTASSIUM PHOS AND MAGNESIUM THIS AM PER ELECTROLYTE PROTOCOL. FAMILY HAS BEEN AT BEDSIDE ALL NIGHT. WILL CONTINUE TO MONITOR UNTIL REPORT IS HANDED OFF TO ONCOMING RN.
--- NOTE | 2019-05-30 11:18 | NUR ---
0745: CARE ASSUMED, ASSESSMENT COMPLETED. PT RESTING QUIETLY IN BED, VENT SETTINGS AC 16, Vt 420, PEEP 5, FIO2 30%, PT TOLERATING SETTINGS WELL. LEVOPHED 2MCG, AMIODARONE 0.5MG, LR 75ML/HR. LS COARSE WITH EXPIRATORY WHEEZES T/O, MODERATE AMOUNT OF BROWN SECRETIONS FROM ETT AT THIS TIME. PT HAD A SMALL BM, ATTENDS CHANGED, PT REPOSITIONED, ORAL CARE COMPLETED. GROIN ACCESS SITES X2 WNL, BRUISING UNCHANGED FROM YESTERDAY AT LEFT ACCESS SITE. PT NOT TRACKING OR RESPONDING PURPOSEFULLY. 0845: TITRATING LEVOPHED FOR MAP <65. 1030: PT AGITATED, COUGHING. ETT SUCTIONING COMPLETED, FENTANYL AND ATIVAN ADMINISTERED PER ORDERS, PT CALMS QUICKLY AFTER MEDICATIONS. 1100: TF RATE CHANGED TO GOAL 50ML/HR PER DIETARY. PT REMAINS CALM, RESTING QUIETLY, VSS. LEVOPHED CURRENTLY AT 6MCG, LR AT 30ML/HR. AMIO GTT AND VENT SETTINGS UNCHANGED. DAUGHTER AT BEDSIDE.
--- NOTE | 2019-05-30 11:30 | NUR ---
MEDICAL SURROGATE DECISION MAKER IS SON, DINESH HART [phone] Prior to my visit, I spoke with covering RN, bedside RN, Dr Jimenez and son, Dinesh, who states he is the medical surrogate decision maker for his mom. Dinesh had called ICU and requested to speak to me. We had met the first day his mom was admitted on 05/27/19 at the bedside. Dinesh wanted an update and had questions re: information he had received from his sister, Deb, who reported to him that pt was being extubated tomorrow and that the Dr's wanted to insert a trach and feeding tube. I clarified that information based on my case conference with Dr Jimenez and explained that would like to be able to wean pt and extubate if she is ready, hoping for tomorrow but if that was not successful she would be reintubated. No trach would be planned at this time but if pt was unable to be weaned in the next week or so, discussion with family re: goals of care, LT needs would take place. I requested that family identify and inform us of patients surrogate decision maker. Dinesh states he is the pt's surrogate decision maker but there is no AD completed that he is aware of. Dinesh is aware that his sister, Deb, may feel differently than the rest of the family about the path to proceed if pt cannot be weaned off vent or cannot swallow. He states his mom has indicated that she would not want long wall mining machine tender ventilatory support to live or long wall mining machine tender feeding by tube to maintain life. Pt has hx of dementia and Parkinson's prior to this event. She lived at home with her kailee, Deb providing meal prep and medication management but was ambulatory and fairly independent in ADL's otherwise. I shared with Dinesh, that felt Pt's chances of returning to her prior level of independence and function were low and he anticipated that she would have moderate to severe disability resulting from the cardiac event, CPR and aftermath of this event. Dinesh verbalized understanding of all of the above. He was assured that no surgery, intervention or decision would be made without his input and consideration. Dr and nurses given POA info to contact with updates, requests, decisions pending etc. When I returned to the room to speak with kailee and assess needs, Kailee had stepped out. Pt is sedated and was medicated recently for agitation and pain. I did not observe any nonverbal indicators of pain, anxiety, distress at this time. Pt is on vent and has had some secretions causing coughing earlier which increased pt's agitation. If able I will return again today to speak with kailee and support her in her grief over pt's event and lack of recovery at this time. Dinesh given my number and hours available this weekend to contact me if needed. Dr Jimenez updated on the above also.
[2019-05-30 12:24] LABS: Hematocrit 25.4 % (33.0-51.0); Hemoglobin 8.7 g/dL (11.5-16.0)
--- NOTE | 2019-05-30 13:36 | NUR ---
1300: PT REQUIRING INCREASING AMOUNTS OF LEVOPHED. GROIN SITES UNCHANGED, NO VOLODYMYR BLOOD FROM ETT SUCTIONING. NOTIFIED OF HYPOTENSION AND LEVOPHED RATE, NEW ORDERS RECEIVED AND CARRIED OUT. PT REPOSITIONED, DAUGHTER AT BEDSIDE. 1330: VSS AT THIS TIME, LEVO AT 6MCG, MAP 68 AFTER BOLUS AND ALBUMIN, HGB STABLE. THIS RN SPOKE TO PT'S SON AND DECISION MAKER, MAU, WHO STATES HE WOULD LIKE FOR PT TO BE DNR STATUS. WILL NOTIFY DR. ROLAND.
--- NOTE | 2019-05-30 14:53 | NUR ---
PALLIATIVE CARE IN TO TALK WITH PT'S DAUGHTER. STATUS CHANGED TO DNR AT THIS TIME PER PT'S SON MAU, DECISION MAKER.
--- NOTE | 2019-05-30 15:54 | NUR ---
Second [facility] Care visit to pt/family today. Called by RN to state that she had been in contact with pt's Son, Thomas and son requests DNR status. Thomas is the medical POA. Staff request that I speak with pt's daughter who has been in and out of the room all day and has been distraught at times. Introduced myself to Deb and explained Palliative Care role and shared my previous conversations with family and her brother since Saturday am when her mom was admitted. Deb was appropriately tearful at times and labile with her expression of emotions. She appeared to be impaired in speech and smelled of etoh. Despite that, she was able to continue the difficult conversation re:her mom's care needs, potentially poor prognosis for meaningful recovery, her code status and the plan A, plan B possibilities/plans for care. We discussed what pt's wishes would be if pt could tell us. Deb confirms that Thomas is his mom's surrogate decision maker. She also states, as Thomas has, that her mom would not want fpc ventilatory support or tube feeding if she is unable to breathe or eat on her own. "If she can't get up and have her cup of coffee in the morning and sit and watch the Young and the Restless, she wouldn't want to keep going". Deb had great difficulty discussing changing her mom's code status to DNR per Thomas's wishes and she acknowledges that if her mom were to code that she will probably ask us to "do everything", but at this time she is in agreement that her mother would not want CPR and/or to be coded again. She verbalizes understanding that pt's code status will be changed to DNR per Thomas's instructions. Informed Deb that no other changes are being made to her mom's care at this time and Drs will proceed with attempting to wean pt off the vent and seek recovery of as much of her function as possible at this time. Informed kailey that if pt doesn't improve we will talk further about plans of care for EOL care and if she does improve we will talk about further care for rehab, etc. Deb was appreciative and very emotional. Time spent holding her while she let grief out. Inquired about her self care and sleep. She has not been home other than to lock her mother's house up. Encouraged her to get the sleep, food, breaks she needs. She said she had left to sleep at her daughter's home a couple of nights. I encouraged quiet presence in pt's room when pt was sedated and resting and soft, soothing conversation with pt and others during more wakeful periods. I encouraged Deb to play her mom's favorite music or TV shows in the room unless any increase in agitation noted. I encouraged her to continue speaking with staff and other family members re: pt's needs. Report given on my visit to Dr Jimenez & Nursing staff. changed code status to DNR. POLST completed based on my conversation and bedside RN's conversation with HC POA. Waiting for signature and then I will process and send copy to Medical Records for scanning into pt's EMR. Plan to f/u tomorrow for support to kailey and ongoing advanced care conversations as indicated.
--- NOTE | 2019-05-30 18:12 | NUR ---
1700: PT MEDICATED FOR AGITATION/RESTLESSNESS, RESPONDS WELL. ATTENDS CHANGED, PT REPOSITIONED, TITRATING LEVO TO KEEP MAP >65. 1814: PT RESTING QUIETLY AT THIS TIME, NO RESTLESSNESS OR AGITATION NOTED. 1844: PT MEDICATED FOR AGITATION, LEVO 4MCG, MAP >65. AMIO 0.5MG, LR 30ML/HR. VENT SETTINGS AC 16, Vt 420, PEEP 5, FIO2 40%, SPO2 MID 90'S, RR 16-22. LS CLEAR AT THIS TIME, DIMINISHED IN BASES, NO WHEEZES OR COARSE BREATH SOUNDS NOTED CURRENTLY. SPUTUM PRODUCTION HAS SLOWED CONSIDERABLY THIS SHIFT TO SMALL AMOUNT OF PINK OUPUT. PT TOLERATING INCREASE IN TF RATE WELL.
--- NOTE | 2019-05-30 18:59 | NUR ---
PT APPEARED TO HAVE SOME DECORTICATE POSTURING THIS SHIFT WHEN RESTRAINTS WERE OFF, DID NOT APPEAR TO BE REACHING FOR ETT. NO TRACKING, NO PURPOSEFUL MOVEMENT. REPORT TO ONCOMING SHIFT.
--- NOTE | 2019-05-30 19:13 | NUR ---
ASSUMED PT CARE PT REMAINS INTUBATED. VENT SETTINGS: AC 16, TV 420, FIO2 40%, PEEP 5. REMAINS OFF PROPOFOL WITH FENTANYL AND ATIVAN BEING USED ADJUNCT SEDATION PRN. LEVOPHED INFUSING AT 4MCG/MIN, LR AT 30MLS/HR, AMIODARONE 0.5MG/MIN. VITAL HIGH PROTEIN INFUSING AT 50MLS/HR. DAUGHTER AT BEDSIDE AND STATED SHE WOULD BE GOING HOME TO HAVE A FAMILY MEETING, BUT HER SISTER WOULD BE BACK TO STAY THE NIGHT. PT REMAINS RESPONSIVE TO NOXIOUS STIMULI, BUT DOES NOT FOLLOW ANY COMMANDS, NOR DOES SHE MAKE ANY PURPOSEFUL MOVEMENTS. NO SIGNIFICANT CHANGES TO REPORT AT THIS TIME.
--- NOTE | 2019-05-31 02:34 | NUR ---
DURING 0200 REPOSITIONING; PT WAS NOTED TO BE COUGHING AND GAGGING ON ETT WITH FACIAL GRIMACING NOTED. ASKED PT TO OPEN HER EYES AND LOOK AT ME; PT ABLE TO DO SO. ASKED PT TO SQUEEZE MY HAND, WHICH SHE WAS ABLE TO DO WITH HER RIGHT HAND; UNABLE TO DO SO WITH HER LEFT. PT SQUINTED EYES TIGHTLY SHUT UPON ATTEMPTING TO ASSESS PUPILS AND GAZE; PT ABLE TO LOOK AND TRACK WITH EYES. UPON SUCTIONING SECRETIONS; PT WOULD LIFT LEFT ARM UP AGAINST THE RESTRAINT. MEDICATED WITH 75MCG OF FENTANYL PER ORDERS FOR ADJUNCT SEDATION AND COMFORT.
[2019-05-31 04:12] LABS: BASOPHILS ABSOLUTE AUTO 0.01 K/mm3 (0.00-0.23); BASOPHILS PERCENT AUTO 0 % (0-2); EOSINOPHILS PERCENT AUTO 0 % (0-6); Hemoglobin 8.9 g/dL (11.5-16.0); IMMATURE GRAN ABSOLUTE AUTO 0.08 K/mm3 (0.00-0.10); IMMATURE GRAN PERCENT AUTO 1 % (0-1); LYMPHOCYTES ABSOLUTE AUTO 0.64 K/mm3 (0.84-5.20); LYMPHOCYTES PERCENT AUTO 7 % (21-46); MONOCYTES ABSOLUTE AUTO 0.32 K/mm3 (0.16-1.47); MONOCYTES PERCENT AUTO 3 % (4-13); Mean Corpuscular HGB 31.2 pg (26.0-34.0); Mean Corpuscular Volume 95 fL (80-100); Mean Platelet Volume 10.5 fL (9.1-12.4); NEUTROPHILS ABSOLUTE AUTO 8.31 K/mm3 (1.96-9.15); NEUTROPHILS PERCENT AUTO 89 % (41-73); Platelet Count 130 K/mm3 (150-400); RDW Coefficient Variation 15.9 % (11.7-14.2); RDW Standard Deviation 55.5 fL (35.1-46.3); Red Blood Cell Count 2.85 M/mm3 (3.80-5.20); White Blood Cell Count 9.36 K/mm3 (4.00-11.30)
[2019-05-31 04:26] LABS: Anion Gap 7 mmol/L (6-16); Blood Urea Nitrogen 22 mg/dL (8-24); Bun/Creatinine Ratio 26.7 (12.0-20.0); CO2, Blood 27 mmol/L (21-32); Calcium, Blood 8.7 mg/dL (8.5-10.1); Chloride, Blood 105 mmol/L (98-108); Creatinine, Blood 0.83 mg/dL (0.40-1.00); Glomerular Filtration Rate >60 (60-); Glucose, Blood 182 mg/dL (70-99); Magnesium, Blood 1.9 mg/dL (1.6-2.4); Phosphorus, Blood 2.6 mg/dL (2.5-4.9); Potassium, Blood 3.6 mmol/L (3.5-5.5); Sodium, Blood 139 mmol/L (136-145)
--- NOTE | 2019-05-31 06:11 | NUR ---
SBT PT NOT MEDICATED PRIOR TO SBT IN ORDER TO OBTAIN BASLINE NEUROLOGICAL STATUS. PT ABLE TO OPEN EYES, TRACK, AND SQUEEZE HAND ON COMMAND. PT SWITCHED TO SPONTANEOUS OF 7 WITH FIO2 40%. PT MAINTAINED RR 24-28, TV GREATER THAN 300, AND OXYGEN SATURATIONS GREATER THAN 90%. VS REMAINED STABLE; ELEVATED UP TO SBP 140 WHEN PT BEGAN GAGGING ON ETT; MEDICATED WITH 50MCG OF FENTANYL FOR COMFORT; HOWEVER, PT STOPPED FOLLOWING COMMANDS AFTER FENTANYL WAS ADMINISTERED. PLACED BACK ON AC MODE AFTER SBT.
--- NOTE | 2019-05-31 06:14 | NUR ---
END OF SHIFT SUMMARY PT HAS IMPROVED NEURO VALLE. AROUND 0200 PT WAS ABLE TO OPEN EYES TO VERBAL COMMAND, FOLLOW AND TRACK WITH HER EYES WITH NO GAZE NOTED, PT ALSO ABLE TO SQUEEZE HAND ON COMMAND. UNABLE TO SHAKE HEAD YES/NO TO QUESTIONS; BECOMES VERY AGITATED AND RESTLESS QUICKLY. MEDICATED WITH FENTANYL FOR MOST OF SHIFT WITH ONLY TWO ADMINISTRATIONS OF ATIVAN PER ORDERS. WILL PASS ON TO DAY SHIFT TO REQUEST A PRECEDEX GTT FOR COMFORT AFTER DR. ASUNCION MCGHEE'S PT'S NEUROLOGICAL STATUS. VENT SETTINGS REMAINED UNCHANGED T/O SHIFT OTHER THAN FOR SBT THIS AM, WHICH PT WAS PLACED BACK ON SAME SETTINGS. LUNG SOUNDS WERE COARSE WITH WHEEZES NOTED AT BEGINNING OF SHIFT, BUT DIMINISHED T/O TOWARD END OF SHIFT. PT REMAINS IN A FIRST DEGREE AV BLOCK WITH NOTED ST ELEVATION; HR 70-80'S. LEVOPHED TITRATED OFF THIS SHIFT; HOWEVER, BLOOD PRESSURES SLOWLY TRENDING BACK DOWN; MIGHT NEED TO PLACE BACK ON A LOW DOSE AT 1-2MCG/MIN. AMIODARONE CONTINUES AT 0.5 MG/MIN. LR AT 30MLS/HR. VITAL HIGH PROTEIN REMAINS AT GOAL OF 50MLS/HR WITH NO RESIDUALS THIS SHIFT. BETTS CATH REMAINS PATENT AND DRAINING TO GRAVITY; 1100 EMPTIED THIS SHIFT OF CLEAR ALEXIA URINE. PT DOESN'T APPEAR TO BE UNCOMFORTABLE AT THIS TIME. WILL CONTINUE TO MONITOR UNTIL REPORT IS HANDED OFF TO DAY RN.
--- NOTE | 2019-05-31 11:13 | NUR ---
0720: CARE ASSUMED, ASSESSMENT COMPLETED. LEVOPHED REMAINS OFF, MAP > 65, AMIO 0.5MG/MIN, HR 80'S. VENT SETTINGS AC 16, Vt 420, FIO2 40%, PEEP 5, RR 18, Vt 400'S, SPO2 >90%. SON AND DAUGHTER AT BEDSIDE, PT RESTING QUIETLY AT THIS TIME, NO AGITATION OR RESTLESSNESS NOTED. EXTREMS ELEVATED ON PILLOWS. GROIN ACCESS SITES WNL. PT NOT FOLLOWING COMMANDS OR TRACKING AT THIS TIME, RECENTLY MEDICATED WITH FENTANYL BY NOC SHIFT. 0800: PT AWAKE, AGITATED AND COUGHING. ANMOL, PT TRACKING AND FOLLOWING SIMPLE COMMANDS, DR. ALATORRE. PT MEDICATED FOR AGITATION, RESPONDING WELL TO FENTANYL. VENT SETTINGS UNCHANGED, VSS, LEVO REMAINS OFF. 0930: DR. ROLAND AT BEDSIDE DISCUSSING PLAN OF CARE WITH PT'S ADULT CHILDREN. PT RESTING QUIETLY, TF INFUSION OFF AT THIS TIME PER DR. ROLAND. 1050: SPONTANEOUS BREATHING TRIAL INITIATED BY RT PER DR. ROLAND. 1120: VENT REMAINS ON SPONTANEOUS SETTING WITH FIO2 40%, SPO2 LOW 90'S, VT'S 480'S, RR 20'S, PT COUGHING OCCASIONALLY BUT OTHERWISE RESTING QUIETLY. ETT SUCTIONED, SMALL AMOUNT OF PINK SPUTUM.
--- NOTE | 2019-05-31 12:16 | NUR ---
PT CONTINUES TO TOLERATE SPONTANEOUS VENT SETTINGS WELL, RR 21, Vt 400'S, SPO2 93%. MAP 80 AT THIS TIME, LEVO REMAINS OFF. FAMILY AT BEDSIDE.
--- NOTE | 2019-05-31 12:18 | NUR ---
AMIODARONE OFF AT THIS TIME PER ORDERS, HR 82 SINUS.
--- NOTE | 2019-05-31 13:06 | NUR ---
1230: PT RESTING QUIETLY IN BED, VSS, PT TOLERATING SPONTANEOUS VENT SETTING WELL, RR 20'S, Vt'S 400'S, SPO2 >90% WITH 40% FIO2. EXP WHEEZES NOTED IN RUL AND RML, WILL NOTIFY RT FOR NEB TX. PT OPENS EYES, TRACKS MOVEMENTS, FOLLOWS COMMANDS, BANUELOS. PT SQUEEZES WITH BOTH HANDS, CERTIFIED MASTER SAFECRACKER ARE EQUALLY WEAK.
--- NOTE | 2019-05-31 14:33 | NUR ---
VSS, SPO2 95%, RR 25, VT 400''S ON SPONTANEOUS VENT SETTING, MAP 106 WIHTOUT PRESSORS. SPOKE WITH DR. ROLAND WHO STATES THAT IF PT CONTINUES TO TOLERATE SPONT. VENT SETTINGS AND HAVE SMALL AMOUNTS OF SECRETIONS, SHE CAN BE EXTUBATED AROUND 1600 IF RT AGREES. RESPIRATORY THERAPIST NOTIFIED. PT'S DAUGHTERS AT BEDSIDE.
[2019-05-31 16:07] LABS: PCO2 Arterial 41.5 mmHg (35-45); pH Blood Arterial 7.43 (7.35-7.45)
[2019-05-31 16:08] LABS: PO2 Arterial 46.8 mmHg (80-100)
--- NOTE | 2019-05-31 16:45 | NUR ---
1645: PT EXTUBATED AT THIS TIME PER DR. ROLAND, OGT REMOVED. LS CLEAR, DIM IN BASES, NO WHEEZES OR COARSE LS NOTED, PT COUGING EFFECTIVELY. 02 8L/ HI FLOW NC, SPO2 94%. RR 36, SHALLOW. HR 101, RHYTHM UNCHANGED. FAMILY REMAINS AT BEDSIDE, WILL UPDATE SAM, DECISION MAKER.
--- NOTE | 2019-05-31 17:27 | NUR ---
PT EXTUBATED SUCCESSFULLY TO NC. PT STILL APPEARS SLEEPY BUT WAKES FOR FAMILY
--- NOTE | 2019-05-31 17:47 | NUR ---
SAM NOTIFIED OF PT CONDITION. PT MEDICATED WITH FENTANYL FOR COMFORT, RR NOW 20'S, SPO2 MID 90'S 8L/HI FLOW NC, MAP >65. PT RESTING, NO AGITATION OR RESTLESSNESS NOTED, FAMILY REMAINS AT BEDSIDE. BIPAP USE OK SHORT TERM IF NECESSARY PER SAM, PT'S DECISION MAKER.
--- NOTE | 2019-05-31 19:10 | NUR ---
ASSUMED CARE OF PT, BEDSIDE REPORT RECEIVED. PT IS RESTING QUIETLY RECLINING IN BED, AROUSES EASILY WITH MOVEMENT OF BLANKETS AND INSPECTION OF GROIN AND ABD ACCESS SITES, DOES NOT FOLLOW COMMANDS AT THIS TIME, DOES APPEAR TO LOCALIZE PAIN AND WITHDRAWS EXTREMITIES FROM NOXIOUS STIMULI, PUPILS EQUAL WITH BRISK REACTION BILAT. LUNGS WITH EXP WHEEZES THROUGHOUT, DIM BASES BILAT, RATE HIGH 30S AT THIS TIME, SATS MID TO UPPER 90S WITH OXYGEN AT 8L/MIN VIA OXYMIZER MASK, PT RESTLESS AND MOANING FREQUENTLY, RT AT BEDSIDE FOR UDN, WILL MONITOR RESTLESSNESS AND ADMIN FENTANYL FOR PAIN IF UDN DOES NOT IMPROVE RESTLESSNESS/MOANING. HRR, RATE 90S, SINUS AT THIS TIME WITH 1ST DEGREE AV BLOCK, PRESSURES MAINTAINING WITH PRESSORS ON STANDBY, PULSES FULL X 4 EXTREMITIES, GENERALIZED NONPITTING EDEMA IS NOTED. ABD DISTENDED, SOFT, NORMOACTIVE BOWEL TONES AT THIS TIME. TEMP PROBE FOEY REMAINS IN PLACE DRAINING CLEAR DARK YELLOW URINE TO GRAVITY. PICC LINE ACCESS TO LEFT UPPER ARM, DRESSING CDI, INFUSING LR AT 30 ML/HR AT THIS TIME, SITE WNL. YEASTLIKE RASH TO ABD FOLDS, NYSTATIN POWDER IS NOTED IN PLACE WILL CONT. PAS STOCKINGS IN PLACE BILAT LOWER EXTREMITIES. SCATTERED BRUISING IS NOTED.
--- NOTE | 2019-05-31 19:25 | NUR ---
1814: PT REPOSITIONED, VS REMAINED STABLE T/O CARES, NO DESAT. PT BECAME AGITATED, MOANING, GRIMACING. MEDICATED WITH FENTANYL PER ORDERS. 1829: PT CALM AND QUIET AT THIS TIME, VS REMAIN STABLE. 1899: LR AT TKO INFUSING, NO OTHER GTT'S, MAP STABLE, SPO2 MID 90'S 8L/HI FLOW NC, OTHER VSS. PT REMAINS QUIET, NO AGITATION OR RESTLESSNESS NOTED. REPORT TO ONCOMING SHIFT.
--- NOTE | 2019-05-31 21:15 | NUR ---
PO MEDS HELD AT THIS TIME SECONDARY TO PT ASPIRATION RISK. PT LETHARGIC AND NOT FOLLOWING COMMANDS, UNCOOPERATIVE WITH ORAL CARE. DISCUSSED WITH OPERATION MANAGER.
[2019-06-01 04:26] LABS: BASOPHILS ABSOLUTE AUTO 0.02 K/mm3 (0.00-0.23); BASOPHILS PERCENT AUTO 0 % (0-2); EOSINOPHILS ABSOLUTE AUTO 0.06 K/mm3 (0.00-0.68); EOSINOPHILS PERCENT AUTO 1 % (0-6); Hematocrit 26.9 % (33.0-51.0); Hemoglobin 8.6 g/dL (11.5-16.0); IMMATURE GRAN ABSOLUTE AUTO 0.12 K/mm3 (0.00-0.10); IMMATURE GRAN PERCENT AUTO 1 % (0-1); LYMPHOCYTES ABSOLUTE AUTO 1.38 K/mm3 (0.84-5.20); LYMPHOCYTES PERCENT AUTO 12 % (21-46); MONOCYTES ABSOLUTE AUTO 1.39 K/mm3 (0.16-1.47); MONOCYTES PERCENT AUTO 12 % (4-13); Mean Corpuscular HGB 30.5 pg (26.0-34.0); Mean Corpuscular Volume 95 fL (80-100); NEUTROPHILS ABSOLUTE AUTO 8.73 K/mm3 (1.96-9.15); NEUTROPHILS PERCENT AUTO 75 % (41-73); Platelet Count 165 K/mm3 (150-400); RDW Coefficient Variation 15.9 % (11.7-14.2); RDW Standard Deviation 54.9 fL (35.1-46.3); Red Blood Cell Count 2.82 M/mm3 (3.80-5.20)
[2019-06-01 04:47] LABS: Albumin, Blood 3.4 g/dL (3.4-5.0); Anion Gap 7 mmol/L (6-16); Blood Urea Nitrogen 26 mg/dL (8-24); Bun/Creatinine Ratio 30.9 (12.0-20.0); CO2, Blood 28 mmol/L (21-32); Chloride, Blood 107 mmol/L (98-108); Creatinine, Blood 0.84 mg/dL (0.40-1.00); Glomerular Filtration Rate >60 (60-); Glucose, Blood 91 mg/dL (70-99); Phosphorus, Blood 1.7 mg/dL (2.5-4.9); Potassium, Blood 3.5 mmol/L (3.5-5.5); Sodium, Blood 142 mmol/L (136-145)
--- NOTE | 2019-06-01 07:35 | NUR ---
PT RESTS QUIETLY THROUGHOUT SHIFT, MEDICATED WITH FENTANYL 50 MCG IV NEEDED FOR PAIN AND TOLERATES WELL. SHE CONTINUES WITH EXPIRATORY WHEEZES THROUGHOUT WHICH RESOLVE WITH UDN ORDERED, OXYGEN TITRATED DOWN THROUGHOUT SHIFT TO NASAL CANNULA AT 3 L/MIN. HRR, CONTINUES IN SINUS WITH 1ST DEGREE AV BLOCK, PRESSURES CONTINUE TO IMPROVE TO 140-150S SYSTOLIC THIS AM. SHE DOES APPEAR TO LOOK TOWARD LOCATIONS OF FAMILY SPEAKING IN ROOM AT TIMES HOWEVER HAS NOT FOLLOWED COMMANDS THIS SHIFT. PT DID NOT FOLLOW COMMANDS AT 2000 LAST NOC AND DID NOT APPEAR TO SWALLOW FOLLOWING ORAL CARE WITH MOUTH SWAB AND HS MEDS WERE HELD SECONDARY TO ASPIRATION RISK.
--- NOTE | 2019-06-01 08:30 | NUR ---
0143-ASSUMED CARE OF PT. PT OPENS HER EYES TO VOICE. SHE TURNS HER HEAD TO THE DIRECTION THE VOICE IS COMING FROM BUT DOES NOT FOLLOW ANY COMMANDS. PT LOOKS COMFORTABLE AT THIS TIME. 1343-SPOKE WITH DR. BELL ABOUT PLAN OF CARE.
--- NOTE | 2019-06-01 09:30 | NUR ---
PT SEEN BY DR. BELL. UPDATED HER OF PT'S STATUS AND PLAN OF CARE.
--- NOTE | 2019-06-01 11:00 | NUR ---
SPOKE WITH PT'S DAUGHTER SUNNY THAT HAVING THE FEEDING TUBE IN PLACE TEMPORARILY FOR HER MEDICATION AND TUBE FEEDS WILL BENEFIT THE PATIENT WHEN WE'RE ALLOWING HER TO WAKE UP. DAUGHTER IS AGREEABLE TO THIS PLAN BUT WILL DISCUSS WITH PT'S POA.
--- NOTE | 2019-06-01 14:11 | NUR ---
1330-DR. SNYDER SPOKE WITH PT'S SON, SAM REGARDING THE RISK OF REOCCULSION OF STENTS WHICH RECENTLY PLACED & RISK OF ANOTHER HEART ATTACK. HE EMPHASIZED THE IMPORTANCE OF HAVING THE BRIL[place]TA FOR AT LEAST 30 DAYS. LINETTE. 1349-LINETTE, PALLIATIVE RN HAS TALKED SAM-PT'S SON REGARDING MAYBE PLACING AN FEEDING TUBE FOR PT TO BE ABLE TO TAKE HER MEDICATIONS UNTIL PT IS FINALLY ABLE TO SWALLOW HER MEDICATIONS SAFELY. SAM HAS AGREED TO PLACING A FEEDING TUBE.
--- NOTE | 2019-06-01 14:31 | NUR ---
Spoke with bedside nurse, Dr Adams, and discussed case. Dr Adams called Pt's son who is MPOA and discussed NG-Tube placement in order for Pt to receive cardiac medications. Son is agreeable with plan. Pt is sitting in recliner chair upon arrival. Pt does not respond when this RN speaks with her. She appears comfortable with no S/S of distress at this time. Pt's daughter is present during visit. Discussed plan and she is agreeable. Encouraged daughter to express concerns and she reports anxiety and gives non verbal ques of not wanting to elaborate. She states having PTSD and anxiety is normal for her. Daughter reports no concerns at this time. Called and spoke with Pt's son Thomas and discussed plan. Thomas reports no questions regarding NG-Tube and is agreeable. He states understanding the possibility if no meaningful recovery that goals of care may need to be reconsidered. Thomas reports no concerns at this time. Palliative Care will remain available.
--- NOTE | 2019-06-01 15:28 | NUR ---
DOBHOFF WAS INSERTED. XR WAS DONE TO CONFIRMATION PLACEMENT. PER DR. WILKES, RADIOLOGIST, DOBHOFF IS IN GOOD POSITION AND OKAY TO USE THE FEEDING TUBE.
--- NOTE | 2019-06-01 18:15 | NUR ---
DR. IVY WAS NOTIFIED PT WAS PLACED ON RESTRAINTS. PT STARTED PULLING O2 TUBINGS & DOBHOFF FEEDING TUBE.
--- NOTE | 2019-06-01 18:32 | NUR ---
SHIFT SUMMARY: PT HAS RECEIVED 2 DOSES OF FENTANYL FOR PAIN. PT HAS BEEN MOSTLY AWAKE THROUGHOUT THE DAY. PT HAS SAT ON THE CHAIR FOR AT LEAST 3 HOURS. PT WAS POSITIONED ON A RECLINE POSITION ON THE RECLINER CHAIR INITIALLY, AN HOUR LATER AFTER SITTING ON A RECLINE POSITION PT PUSHED HERSELF UP TO A SITTING. PT HAS BEEN MOANING MOST OF THE DAY. PT STARTED TALKING LATER THIS AFTERNOON BUT DIFFICULT TO DECIPHER. BUT THEN AROUND 1800 PT STARTED SAYING " I WANT" ... DIFFICULT TO UNDERSTAND THE REST OF HER SENTENCE BUT "I WANT" WAS VERY CLEAR. HAD EXPLAINED TO FAMILY THAT MINIMIZING PAIN MEDICATION WILL HELP PATIENT BE MORE AWAKE SOONER. TUBE FEEDING WILL BE STARTED.
--- NOTE | 2019-06-01 19:30 | NUR ---
ASSUMED CARE OF PT BEDSIDE REPORT RECEIVED. PT IS NOTED MORE ALERT THIS PM, SHE DOES SPEAK WORDS IN SMALL PHRASES AT THIS TIME "I WANT" BUT DOES NOT FINISH THE SENTANCE. SHE IS FOLLOWING COMMANDS AT THIS TIME, BILAT RAVELER AND LEG STRENGTH IS WEAK BUT EQUAL BILAT, EYES ARE SPONTANEOUSLY OPEN AND SHE DOES TRACK MOVEMENT IN ROOM. PT HAS AUDIBLE WHEEZE HOWEVER LEFT LUNG IS CLEAR WITH DIM BASE, RIGHT LUNG IS CLEAR IN THE UPPER LOBE WITH COARSE EXP WHEEZE PRESENT MIDDLE, RIGHT BASE DIMINISHED, EXP WHEEZE TO AUSCULTATION OVER TRACHEA, COARSE SOUNDS CLEAR WITH COUGH, SATS MID TO UPPER 90S WITH OXYGEN AT 2 L/MIN VIA NC. HRR, SINUS WITH 1ST DEGREE AV BLOCK, RATE 80-90S AT THIS TIME, PRESSURE MAINTAINING, PULSES FULL AND EQUAL X 4 EXTREMITIES. ABD SOFT, NORMOACTIVE BOWEL TONES, JEVITY 1.2 AT 50 ML/HR WITH WATER 30 ML EVERY 4 HOURS VIA DOBHOFF TO RIGHT NARE AND [place] INFUSION PUMP. BETTS CATH REMAINS IN PLACE DRAINING CLEAR DARK YELLOW URINE TO GRAVITY. BRUISING TO LOW ABD/PELVIS CONTINUES, PREV ARTERIAL ACCESS SITES CONTINUE WITHOUT CHANGES.
[2019-06-02 04:41] LABS: BASOPHILS ABSOLUTE AUTO 0.03 K/mm3 (0.00-0.23); BASOPHILS PERCENT AUTO 0 % (0-2); EOSINOPHILS ABSOLUTE AUTO 0.27 K/mm3 (0.00-0.68); EOSINOPHILS PERCENT AUTO 2 % (0-6); Hematocrit 28.4 % (33.0-51.0); Hemoglobin 9.1 g/dL (11.5-16.0); IMMATURE GRAN ABSOLUTE AUTO 0.22 K/mm3 (0.00-0.10); IMMATURE GRAN PERCENT AUTO 2 % (0-1); LYMPHOCYTES ABSOLUTE AUTO 1.58 K/mm3 (0.84-5.20); LYMPHOCYTES PERCENT AUTO 14 % (21-46); MONOCYTES ABSOLUTE AUTO 1.71 K/mm3 (0.16-1.47); MONOCYTES PERCENT AUTO 15 % (4-13); Mean Corpuscular HGB 30.5 pg (26.0-34.0); Mean Corpuscular Volume 95 fL (80-100); Mean Platelet Volume 9.8 fL (9.1-12.4); NEUTROPHILS ABSOLUTE AUTO 7.62 K/mm3 (1.96-9.15); NEUTROPHILS PERCENT AUTO 67 % (41-73); Platelet Count 208 K/mm3 (150-400); RDW Coefficient Variation 15.7 % (11.7-14.2); RDW Standard Deviation 53.8 fL (35.1-46.3); Red Blood Cell Count 2.98 M/mm3 (3.80-5.20); White Blood Cell Count 11.43 K/mm3 (4.00-11.30)
[2019-06-02 05:02] LABS: Anion Gap 5 mmol/L (6-16); Blood Urea Nitrogen 20 mg/dL (8-24); Bun/Creatinine Ratio 26.7 (12.0-20.0); CO2, Blood 28 mmol/L (21-32); Calcium, Blood 9.1 mg/dL (8.5-10.1); Chloride, Blood 109 mmol/L (98-108); Creatinine, Blood 0.75 mg/dL (0.40-1.00); Glomerular Filtration Rate >60 (60-); Glucose, Blood 116 mg/dL (70-99); Magnesium, Blood 1.9 mg/dL (1.6-2.4); Phosphorus, Blood 1.8 mg/dL (2.5-4.9); Potassium, Blood 3.7 mmol/L (3.5-5.5); Sodium, Blood 142 mmol/L (136-145)
--- NOTE | 2019-06-02 06:09 | NUR ---
PT MORE ALERT THIS SHIFT, HAS BEEN ABLE TO STATE "I WANT TO GO TO BED" AND WAS ABLE TO BRIEFLY LIFT UPPER TORSO OFF OF BED. MORE PURPOSEFUL MOVEMENTS HAVE BEEN NOTED AND PT DOES REACH FOR DAUGHTER'S HAND AT BEDSIDE. SHE FOLLOWS DIRECTIONS WELL. MEDICATED WITH FENTANYL 25 MCG IV X 1 FOR INCREASED RESTLESSNESS AND REPEATED "I WANT TO GO TO BED" HOWEVER GRIMACING AND OCCASIONAL "OUCH" WERE NOTED, PT CNVI DID DECREASE TO 0 FOLLOWING ADMINISTRATION AND SHE REMAINED EASILY AROUSABLE TO VERBAL STIMULI. BM X 1 THIS SHIFT, PT TOLERATED ATTENDS CHANGE AND DINAH CARE WELL AT THAT TIME. LUNGS CONTINUE WITH EXP WHEEZES, OCCASIONAL STRONG COUGH CONTINUES, NO SPUTUM HAS BEEN VISUALIZED THIS SHIFT. PO CARE PROVIDED WITH MOUTH SWABS AND PT TOLERATED WELL. HRR, CONTINUES SINUS ON MONITOR WITH 1ST DEGREE AV BLOCK, PRESSURES REMAIN STABLE. JEVITY 1.2 CONTINUOUS FEEDS TOLERATED WELL VIA DOBHOFF, AT GOAL OF 65 ML/HR THIS AM.
--- NOTE | 2019-06-02 07:14 | NUR ---
START OF SHIFT NOTE: RECEIVED REPORT FROM FRANSISCO CESPEDES RN, ASSUMED CARE, PATIENT IS AWAKE AND ALERT, ABLE TO FOLLOW SOME COMMANDS, ABLE TO TELL ME HER NAME, ALSO STATED "I HAVE TO PEE", PATIENT WAS TOLD SHE HAS A BETTS CATHETER, DOBHOFF IN PLACE AND HAS TF JEVITY 1.2 RUNNING AT GOAL RATE OF 65 CC/HR, WITH WATER FLUSHES, SPEECH TO SEE PATIENT THIS AM AND EVALUATE, LUNG SOUNDS ARE CLEAR WITH OCCASIONAL COARSENESS AND EXPIRATORY WHEEZES, PATIENT DENIES PAIN, BOWEL TONES ARE PRESENT AND HYPOACTIVE, TEMP BETTS IN PLACE SHOWING 100.4, LOW GRADE FEVER, PATIENT DOES NOT FEEL HOT, PEDAL PULSES ARE STRONG, PATIENT TAKES NAPS IN BETWEEN, CALL LIGHT IN REACH, WILL CONTINUE TO MONITOR.
--- NOTE | 2019-06-02 07:55 | NUR ---
PATIENT FOUND WITH DOBHOFF PULLED OUT, TUBE FEEDING STOPPED, FAMILY AT BEDSIDE, PATIENT RESTING WITH EYES CLOSED, WILL ATTEMPT TO REPLACE DOBHOFF.
--- NOTE | 2019-06-02 09:05 | NUR ---
SPEECH IN TO SEE PATIENT, SPOKE WITH PATIENT'S FAMILY AND PALLIATIVE CARE, FAILED SWALLOW EVALUATION, SPEECH SPOKE WITH DAUGHTER, DAUGHTER WILL CALL HER BROTHER, WHO IS THE POA, HOLD DOBHOFF INSERTION FOR NOW.
--- NOTE | 2019-06-02 09:38 | NUR ---
SON DINESH HART CALLED AND UPDATE WAS PROVIDED ON PATIENT CONDITION VIA TELEPHONE, SON ASKED TO SPEAK WITH PHYSICIAN, DR. DILL.
--- NOTE | 2019-06-02 10:17 | NUR ---
DOBHOFF REINSERTED, CHEST XRAY ORDERED, PATIENT TOLERATED FAIRLY WELL, SON AT BEDSIDE, RESTRAINTS IN PLACE, CALL LIGHT IN REACH, WILL CONTINUE TO MONITOR.
--- NOTE | 2019-06-02 10:55 | NUR ---
Pt visit this AM. Pt is resting in bed upon arrival. Pt responds verbally and states "no" when asked if having pain. Pt does not reponds to other comfort questions. Pt does not respond to question regarding NG-Tube. Pt appears dyspneic as evidenced by work of breathing. Spoke with ST Connor and she reports Pt failed swallow evaluation. Geeta reports Pt is unable to protect her airway. Geeta reports conversation regarding goals of care may need to be revisited with family. Pt has pulled her feeding tube out and 4 other attempts have been made to place NG tube with no success. Spoke with bedside nurse Rose and she reports same concerns as Geeta and feels conversation regarding goals of care should be re evaluated. Spoke with Dr Leigh and he reports conversation with family regarding comfort care would be appropriate. Palliative Care will have discussion with Pt's son Eliseo (MPOA) and revisist goals of care.
--- NOTE | 2019-06-02 11:13 | NUR ---
PATIENT FOUND SECOND TIME WITH DOBHOFF REMOVED, DR. DILL NOTIFIED, DO NOT REPLACE DOBHOFF LEAVE DOBHOFF OUT, CALL LIGHT IN REACH, WILL CONTINUE TO MONITOR.
--- NOTE | 2019-06-02 12:26 | NUR ---
CALLED INTO ROOM BY SON, ASKED ME IF FEEDING TUBE CAN BE REINSERTED, THIS RN TOLD SON THAT DR. DILL HAS NOW GIVEN THE ORDER TO NOT REINSERT DOBHOFF, HE ALSO DOES NOT WANT TO HAVE HER IN RESTRAINTS JUST TO KEEP DOBHOFF IN PLACE, SON STATED THAT HE WOULD LIKE TO SPEAK WITH DR. DILL, HOWEVER, THIS SON IS NOT THE POA, AND DR. DILL IS IN CONTACT WITH DINESH HART, THE SON, WHO HAS POA, ADAMA ROLAND, CHARGE NURSE WAS NOTIFIED ABOUT THIS DISCUSSION.
--- NOTE | 2019-06-02 12:37 | NUR ---
THIS RN CALLED LINETTE SCOTT, PALLIATIVE CARE, AND DISCUSSED ISSUE OF REINSERTING THE DOBHOFF, LINETTE WILL CALL THE SON DINESH WHO IS THE MEDICAL POA.
--- NOTE | 2019-06-02 17:55 | NUR ---
SHIFT SUMMARY NOTE: PATIENT WAS ABLE TO TELL ME HER NAME AT THE BEGINNING OF THE SHIFT, NOW SHE IS ABLE TO ASK QUESTIONS AND FORM COMPLETE SENTENCES, MORE AWAKE, PATIENT HAD DOBHOFF IN AT BEGINNING OF SHIFT AND WAS IN RESTRAINTS, PULLED DOBHOFF OUT, IT WAS REINSERTED AND RESTRAINTS WERE REAPPLIED, HOWEVER PATIENT PULLED IT OUT AGAIN, DR. DILL ORDERED TO LEAVE IT OUT, PATIENT DID NOT RECEIVED ANY ORAL MEDICATIONS, D/T FAILING SWALLOW EVAL THIS AM, DR. DILL, AND LINETTE SCOTT, PALLIATIVE CARE, BOTH CALLED PATIENT'S SON DINESH HART, WHO IS POA, AND ADDRESSED NUMEROUS ISSUES, IT WAS DECIDED TO LEAVE DOBHOFF OUT "AND SEE WHAT THE NEXT FEW DAYS ARE BRINGING", PATIENT YELLS OUT AT TIMES AND ASKS FOR GLASSES, BUT THERE ARE NO GLASSES IN ROOM, SLEEPS ON AND OFF, FAMILY MEMBERS VISITING OCCASIONALLY, PATIENT RECEIVED LASIX FOR POSSIBLE FLUID OVERLOAD, HADALMOST 3L OUT, STATUS WAS CHANGED TO PCU, FOR DETAILS SEE SHIFT ASSESSMENT DOCUMENTATION AND NURSES NOTES, CALL LIGHT IN REACH, WILL CONTINUE TO MONITOR AND GIVE REPORT TO ONCOMING TURNING MACHINE OPERATOR HELPER.
--- NOTE | 2019-06-02 18:29 | NUR ---
PATIENT'S SON DINESH ON PHONE, UPDATE ON CONDITION PROVIDED.
--- NOTE | 2019-06-02 22:36 | NUR ---
PT YELLS OUT FOR ASSISTANCE OCASIONALLY, UPON ENTERING ROOM SHE IS ABLE TO VERBALIZE REQUESTS APPROPRIATLEY. PT REORIENTED TO SUROUNDINGS AND CALL LIGHT FREQUENTLY. LIGHT BLANKET PROVIDED, BED ADJUSTED PER HER REQUEST. CALL LIGHT IN REACH.
[2019-06-03 03:52] LABS: Albumin, Blood 2.7 g/dL (3.4-5.0); Anion Gap 5 mmol/L (6-16); Blood Urea Nitrogen 17 mg/dL (8-24); Bun/Creatinine Ratio 25.5 (12.0-20.0); CO2, Blood 31 mmol/L (21-32); Calcium, Blood 8.9 mg/dL (8.5-10.1); Chloride, Blood 107 mmol/L (98-108); Creatinine, Blood 0.67 mg/dL (0.40-1.00); Glomerular Filtration Rate >60 (60-); Glucose, Blood 86 mg/dL (70-99); Potassium, Blood 3.3 mmol/L (3.5-5.5); Sodium, Blood 143 mmol/L (136-145)
--- NOTE | 2019-06-03 06:43 | NUR ---
SUMMARY PT HAS BEEN TALKING CLEAR AND DIRACT SENTENCES THROUGH THE NIGHT. SHE HAS BEEN ABLE TO COMMUNICATE NEEDS FOR THE MOST PART. SHE IS ASKING FOR WATER AND EXPRESSING HUNGER. SHE IS HAVING PERIODS OF FORGETFULNESS AND IS ASKING WHY SHE IS HERE. FREQUENT REORIENTATION PROVIDED. PT HAS REMAINED NPO THROUGH THE NIGHT UNTIL ANOTHER SPEECH EVALUATION CAN BE DONE. VSS, NO OTHER ACUTE CHANGES NOTED THROUGH THE NIGHT. WCTM AND REPORT TO DAY RN
--- NOTE | 2019-06-03 08:51 | NUR ---
PT HAS BEEN CHANGED TO MEDICAL STATUS NO TELE, DR. DILL IN THIS AM. SHE IS ON HER WAY TO MEDICAL VIA BED, REPORT WAS GIVEN TO KVNG STEPHENSON CNA IN ATTENDENCE, SHE WAS AWAKE AND YELLING OUT THIS AM, INSISTING WE GET HER OOB, SHE IS NOT ORIENTED, BUT ABLE TO BE REDIRECTED, LUNGS ARE COURSE, WITH SOME WHEEZING, HAS A HARSH COUGH SHE STATES IS FROM SMOKING, IS CURRENTLY ON 1 LITER 02 VIA N/C, RESP EVEN AND UNLABORED, HRR, TRACE EDEMA NOTED, PPP FAINT, HAS PAS BOOTS IN PLACE, PICC LINE TO BHAVESH SITE IS CLEAR AND PATENT, BTX4, ABD FLAT SOFT NONTENDER, VOIDS VIA BETTS CATH DRAINING YELLOW URINE, SKIN HAS SCATTERED BRUISNGS, DENIES PAIN, MOVES UPPER EXT WELL, VERY WEAK, SOFIYA, CALL LIGHT IN REACH, SPEECH IN TO EVAL HER, SHE WAS ABLE TO TAKE P0 MEDS WHOLE WITH FOOD, DR. DILL NOTIFIED.
--- NOTE | 2019-06-03 19:25 | NUR ---
SHIFT SUMMARY: PATIENT XFR FROM ICU-13 THIS SHIFT. PT HX ALZHEIMER'S; ALERT; CONFUSED; REDIRECTABLE. HX CPR THIS VISIT; EXTENSIVE BRUISING; MEDICATED FOR STERNAL PAIN PER EMAR. BETTS IN PLACE; PATENT AND DRAINING. HX COPD; LUNGS WHEEZY & COARSE; O2 @ 1L. SWALLOW PRECAUTIONS; SEE ST NOTE. IV ABX & FLUID REHYDRATION CONTINUING. REPORT GIVEN TO ONCOMING RN.
--- NOTE | 2019-06-04 02:59 | NUR ---
NOC SHIFT SUMMARY PT IS ANXIOUS WITH HX OF DEMENTIA. SHE WAS ADMITTED FOR [facility] AND HAD CARDIAC ARREST ON THE WAY TO THE APARTMENT RENTAL CLERK ON DAY OF ADMIT. SHE WAS TRANSFERED TO MEDICAL FLOOR FROM ICU ON PREVIOUS SHIFT. SHE HAS BEEN ANXIOUS AND AIR HUNGERING. HAD A VIEW OF 4 AT 2229. CALLED TO HOSPITALIST DR CONNELLY WHO ORDERED A STAT EKG AND CAME UP TO SEE PT. HE ORDERED MELATONIN, DESYREL, AND REQUIP. PT CONTINUED TO BE ANXOUS AND TRYING TO GET OUT OF BED DESPITE DAUGHTER AND STAFF IN ROOM TO REDIRECT. CALLED TO [facility] AND RECIEVED ORDER FOR ONE TIME DOSE OF ATIVAN 0.5MG. THIS APPEARS TO HAVE HELPED SOMEWHAT. PT APPEARS SLIGHTLY LESS AGITATED. WILL CONTINUE TO MONITOR.
[2019-06-04 06:03] LABS: BASOPHILS ABSOLUTE AUTO 0.04 K/mm3 (0.00-0.23); BASOPHILS PERCENT AUTO 0 % (0-2); EOSINOPHILS ABSOLUTE AUTO 0.18 K/mm3 (0.00-0.68); EOSINOPHILS PERCENT AUTO 2 % (0-6); Hematocrit 30.9 % (33.0-51.0); Hemoglobin 9.8 g/dL (11.5-16.0); IMMATURE GRAN ABSOLUTE AUTO 0.33 K/mm3 (0.00-0.10); IMMATURE GRAN PERCENT AUTO 3 % (0-1); LYMPHOCYTES PERCENT AUTO 8 % (21-46); MONOCYTES ABSOLUTE AUTO 1.62 K/mm3 (0.16-1.47); MONOCYTES PERCENT AUTO 14 % (4-13); Mean Corpuscular HGB 31.2 pg (26.0-34.0); Mean Corpuscular HGB Conc 31.7 g/dL (31.5-36.5); Mean Platelet Volume 9.4 fL (9.1-12.4); NEUTROPHILS ABSOLUTE AUTO 8.77 K/mm3 (1.96-9.15); NEUTROPHILS PERCENT AUTO 74 % (41-73); Platelet Count 288 K/mm3 (150-400); RDW Coefficient Variation 15.6 % (11.7-14.2); Red Blood Cell Count 3.14 M/mm3 (3.80-5.20); White Blood Cell Count 11.84 K/mm3 (4.00-11.30)
[2019-06-04 06:04] LABS: Mean Corpuscular Volume 98 fL (80-100)
[2019-06-04 06:19] LABS: Anion Gap 4 mmol/L (6-16); Blood Urea Nitrogen 18 mg/dL (8-24); Bun/Creatinine Ratio 28.4 (12.0-20.0); CO2, Blood 30 mmol/L (21-32); Calcium, Blood 9.3 mg/dL (8.5-10.1); Chloride, Blood 108 mmol/L (98-108); Creatinine, Blood 0.63 mg/dL (0.40-1.00); Glomerular Filtration Rate >60 (60-); Glucose, Blood 125 mg/dL (70-99); Potassium, Blood 3.9 mmol/L (3.5-5.5); Sodium, Blood 142 mmol/L (136-145)
--- NOTE | 2019-06-04 08:39 | NUR ---
DAUGHTER , WHO HAS BEEN STAYING IN ROOM WITH PATIENT, REQUEST TO LET PATIENT SLEEP "SHE HAS NOT GOTTEN ANY SLEEP SINCE SHE HAS BEEN HERE." PATIENT SLEEPING UPON 3 TIMES IN ROOM.
--- NOTE | 2019-06-04 11:19 | NUR ---
PER LASIX AND POTASSIUM TO START TODAY. WILL ORDER.
--- NOTE | 2019-06-04 12:47 | NUR ---
DAUGHTER WONDERING ABOUT P.T./O.T. AT THIS TIME NOT ORDERED. PER DR.STODDARD KWOK TO ORDER.
--- NOTE | 2019-06-04 17:54 | NUR ---
PATIENT ALERT. ORIENTED. PER DAUGHTER PATIENT "VERY ANXIOUS." REDIRECTABLE. MEDICATED FOR STERNAL PAIN WITH GOOD RESULTS. C/O PAIN TO GROIN AREA. GROIN AND BETTS CATH CLEANED WITH STAT LOCKED MOVED. CALAZINE CREAM APPLIED TO AREA AROUND BETTS WITH PATIENT STATING SHE FEELS MUCH BETTER. P.T./O.T. WERE IN TO EVALUATE. PATIENT HAS BRUISES EVERYWHERE EXCEPT BACK. TAKES MEDS WHOLE IN PUDDING WITH CUES. FLUID NECTAR THICKENED. ON OXYGEN WITH PRONGS SOMETIMES IN MOUTH. RESPIRATIONS APPEAR NOT LABORED MORNING. DAUGHTER APPEARS TO STAY WITH PATIENT 27/05. PICC PATENT EXCEPT FOR WHITE AND BLUE LINE--UNABLE TO FLUSH. WCTM
[2019-06-05 06:20] LABS: Anion Gap 5 mmol/L (6-16); Blood Urea Nitrogen 21 mg/dL (8-24); CO2, Blood 31 mmol/L (21-32); Calcium, Blood 9.1 mg/dL (8.5-10.1); Chloride, Blood 105 mmol/L (98-108); Glomerular Filtration Rate >60 (60-); Glucose, Blood 122 mg/dL (70-99); Potassium, Blood 3.5 mmol/L (3.5-5.5); Sodium, Blood 141 mmol/L (136-145)
--- NOTE | 2019-06-05 06:30 | NUR ---
SHIFT SUMMARY PT ALERT SLOW TO RESPOND. C/O ANXIETY AND MEDICATED PER EMAR X2. C/O PAIN IN ABD AND THEN PAIN IN L SHOULDER AND MEDICATED PER EMAR. C/O HEARTBURN AND GOT ORDER FOR MAALOX. SLEPT A LITTLE WHILE AFTER PO ATIVAN BUT THEN AWOKE AND ONLY LIGHTLY DOZED ON AND OFF AFTER THAT. 2L O2 NC. DAUGHTER AT BEDSIDE. BETTS DRAINING. BED ALARM IN USE. CALL LIGHT IN REACH.
--- NOTE | 2019-06-05 19:13 | NUR ---
LATE ENTRY 1814 CATH NEETA TO WHITE AND DARBY PICC PORTS, DWELLED FOR 1 HR. ABLE TO DRAW BACK 10 CC BLOOD. THEN FLUSHES EASILY. CAPS CHANGED.
--- NOTE | 2019-06-05 19:31 | NUR ---
SHIFT SUMMARY: NO ACUTE CHANGES TO REPORT THIS SHIFT. PT HX ALZHEIMER'S; CONFUSED; REDIRECTABLE; COOEPRATIVE WITH CARE. CPR X2 THIS SVISIT; MEDICATED FOR STERNAL & SHOULDER PAIN PER EMAR. BETTS IN PLACE; PATENT AND DRAINING. O2 @ 2L VIA NC. ASPIRATION PRECAUTIONS. IV ABX & DIURETICS CONTINUIONG. REPORT GIVEN TO ONCOMING RN.
[2019-06-06 04:55] LABS: Anion Gap 6 mmol/L (6-16); Blood Urea Nitrogen 20 mg/dL (8-24); Bun/Creatinine Ratio 28.9 (12.0-20.0); CO2, Blood 33 mmol/L (21-32); Calcium, Blood 9.4 mg/dL (8.5-10.1); Chloride, Blood 104 mmol/L (98-108); Creatinine, Blood 0.69 mg/dL (0.40-1.00); Glomerular Filtration Rate >60 (60-); Glucose, Blood 122 mg/dL (70-99); Potassium, Blood 3.3 mmol/L (3.5-5.5); Sodium, Blood 143 mmol/L (136-145)
--- NOTE | 2019-06-06 06:04 | NUR ---
Shift summary: Pt very confused. Pt wanting to get up frequently and wanting her son to take her home. Very determined to get out of here.
[2019-06-06 08:09] LABS: BASOPHILS ABSOLUTE AUTO 0.04 K/mm3 (0.00-0.23); BASOPHILS PERCENT AUTO 0 % (0-2); EOSINOPHILS ABSOLUTE AUTO 0.33 K/mm3 (0.00-0.68); EOSINOPHILS PERCENT AUTO 3 % (0-6); Hematocrit 30.6 % (33.0-51.0); Hemoglobin 9.5 g/dL (11.5-16.0); IMMATURE GRAN ABSOLUTE AUTO 0.19 K/mm3 (0.00-0.10); IMMATURE GRAN PERCENT AUTO 2 % (0-1); LYMPHOCYTES ABSOLUTE AUTO 1.58 K/mm3 (0.84-5.20); LYMPHOCYTES PERCENT AUTO 14 % (21-46); MONOCYTES ABSOLUTE AUTO 1.27 K/mm3 (0.16-1.47); MONOCYTES PERCENT AUTO 11 % (4-13); Mean Corpuscular HGB 30.4 pg (26.0-34.0); Mean Corpuscular Volume 98 fL (80-100); NEUTROPHILS PERCENT AUTO 70 % (41-73); Platelet Count 301 K/mm3 (150-400); RDW Coefficient Variation 15.9 % (11.7-14.2); RDW Standard Deviation 54.4 fL (35.1-46.3); Red Blood Cell Count 3.12 M/mm3 (3.80-5.20); White Blood Cell Count 11.51 K/mm3 (4.00-11.30)
[2019-06-06] MEDS ORDERED: VITAMIN D250000 UNIT PO (15:22)
[2019-06-06] MEDS ORDERED: ALKA-SELTZER PO (15:49)
--- NOTE | 2019-06-06 16:52 | NUR ---
SHIFT SUMMARY PT AXO TO SELF AND PLACE, IRRITABLE AND ANXIOUS AT TIMES. PT MEDICATED FOR ANXIETY AND PAIN PER EMAR. PT UP TO CHAIR FOR MOST OF THE DAY THOUGH IN BED AT THIS TIME. UP TO CHAIR FOR MEALS. PT UP WITH 1 ASSIST TO BSC WITH FWW AND GB. BETTS PATENT AND DRAINING THOUGH WILL BE REMOVED PRIOR TO END OF SHIFT. SPEECH/LANGUAGE THERAPIST 2, FELIX AGREES TO REMOVE. VSS. THOUGH AT 0956 PT COMPLAINED OF BEING SOB. RESPIRATORY THERAPY, LEILA CALLED AND ASSESSED PT WHO WAS 88 ON 2L VIA NC THOUGH MOUTH BREATHING. PT CLOSED MOUTH AND SATS IMPROVED TO 93% PER LEILA, RT. MED REC VERIFIED WITH PT'S DAUGHTER WHO HAD MULTIPLE QUESTIONS ABOUT PT AND HER MEDS. DR OSCAR IN ROOM AT THIS TIME. PALLIATIVE CARE CALLED WELL
--- NOTE | 2019-06-06 20:05 | NUR ---
Pt very agitated . Respiratory rate 40. Pt stating she can't breath. Pt sating 94% on 4 liters. Nurse and family unable to calm pt down. Pt given fentanyl and haldol with some relief. Breathing slows down for a while. Anxiety back about one hour later. PM meds , trazodone and ativan given. Pt now resting comfortably. Respiratory rate WNL.
[2019-06-07 05:11] LABS: BASOPHILS ABSOLUTE AUTO 0.05 K/mm3 (0.00-0.23); BASOPHILS PERCENT AUTO 0 % (0-2); EOSINOPHILS ABSOLUTE AUTO 0.35 K/mm3 (0.00-0.68); EOSINOPHILS PERCENT AUTO 3 % (0-6); Hematocrit 30.6 % (33.0-51.0); Hemoglobin 9.5 g/dL (11.5-16.0); IMMATURE GRAN ABSOLUTE AUTO 0.18 K/mm3 (0.00-0.10); IMMATURE GRAN PERCENT AUTO 2 % (0-1); LYMPHOCYTES ABSOLUTE AUTO 1.64 K/mm3 (0.84-5.20); LYMPHOCYTES PERCENT AUTO 15 % (21-46); MONOCYTES ABSOLUTE AUTO 0.97 K/mm3 (0.16-1.47); MONOCYTES PERCENT AUTO 9 % (4-13); Mean Corpuscular HGB 30.9 pg (26.0-34.0); Mean Corpuscular Volume 100 fL (80-100); Mean Platelet Volume 9.7 fL (9.1-12.4); NEUTROPHILS ABSOLUTE AUTO 8.04 K/mm3 (1.96-9.15); NEUTROPHILS PERCENT AUTO 72 % (41-73); Platelet Count 317 K/mm3 (150-400); RDW Coefficient Variation 15.9 % (11.7-14.2); RDW Standard Deviation 56.2 fL (35.1-46.3); Red Blood Cell Count 3.07 M/mm3 (3.80-5.20); White Blood Cell Count 11.23 K/mm3 (4.00-11.30)
[2019-06-07 05:26] LABS: Alanine Aminotransfer (ALT/SGP 27 U/L (12-78); Albumin, Blood 2.9 g/dL (3.4-5.0); Albumin/Globulin Ratio 0.8 (0.8-1.8); Alk Phos 78 U/L (50-136); Anion Gap 3 mmol/L (6-16); Aspartate Aminotrans (AST/SGOT 26 U/L (12-37); Bilirubin, Total 1.1 mg/dL (0.1-1.0); Blood Urea Nitrogen 21 mg/dL (8-24); Bun/Creatinine Ratio 31.8 (12.0-20.0); CO2, Blood 33 mmol/L (21-32); Calcium, Blood 9.8 mg/dL (8.5-10.1); Chloride, Blood 105 mmol/L (98-108); Creatinine, Blood 0.66 mg/dL (0.40-1.00); Globulin, Blood 3.5 g/dL (2.2-4.0); Glomerular Filtration Rate >60 (60-); Glucose, Blood 101 mg/dL (70-99); Potassium, Blood 3.9 mmol/L (3.5-5.5); Sodium, Blood 141 mmol/L (136-145); Total Protein, Blood 6.4 g/dL (6.4-8.2)
--- NOTE | 2019-06-07 06:40 | NUR ---
Shift summary: See previous note. Pt up again around four with increasing anxiety stating she can't breath. Pt also c/o pain in shoulder and rib. Pt given fentanyl and ativan and given a resp tx. Pt able to calm down and resp rate down to normal. Pt up to bedside commode- voiding 400 cc urine. Pt lets us know when she needs to urinate. Pt now up in chair resting comfortably.
--- NOTE | 2019-06-07 18:09 | NUR ---
SHIFT SUMMARY PT AXO TO SELF, PLACE, FAMILY MEMBERS BUT HAS ANXIOUS EPISODES AND CONFUSION. PT OPPOSITIONAL TO SOME ASPECTS OF CARE AND IS MORE COOPERATIVE WITH FAMILY PRESENT. PT MEDICATED PER EMAR FOR PAIN. PT HAD A 1250 WHERE SHE STATED THAT SHE FELT THAT SHE WAS HAVING ANOTHER HEART ATTACK. NURSE ASSESSED, MEDICATED PT FOR PAIN AND ANXIETY AND CALLED DR OSCAR. PT UP TO CHAIR FOR MOST OF THE DAY. PICC PATENT AND SALINE LOCKED. UP WITH 1 ASSIST, FWW AND GB. ON TELE, SINUS RHYTHM PER AIRPLANE ELECTRICAL REPAIRER. BED IN LOW POSIITON, CALL LIGHT WITHIN REACH, CHAIR AND BED ALARM ON.
--- NOTE | 2019-06-08 05:30 | NUR ---
Shift summary: Pt's mentation comes and goes during the night. At times she has been alert and oriented and other times she gets confused, agitated and anxioous and bound and determined that she is going to do what she wants to do. When pt get anxious her resp rate goes up and she has trouble breathing. Pt given 2 doses of fentanyl, two doses of ativan and one of haldol during the night to help with the pain and anxiety. Telemetry dced per md. Pt has also become more mobile and is still a high fall risk. Bed and chair alarms must stay on.
[2019-06-08 09:58] LABS: BASOPHILS ABSOLUTE AUTO 0.07 K/mm3 (0.00-0.23); BASOPHILS PERCENT AUTO 1 % (0-2); EOSINOPHILS PERCENT AUTO 3 % (0-6); Hematocrit 31.7 % (33.0-51.0); Hemoglobin 9.9 g/dL (11.5-16.0); IMMATURE GRAN ABSOLUTE AUTO 0.12 K/mm3 (0.00-0.10); IMMATURE GRAN PERCENT AUTO 1 % (0-1); LYMPHOCYTES ABSOLUTE AUTO 1.48 K/mm3 (0.84-5.20); LYMPHOCYTES PERCENT AUTO 14 % (21-46); MONOCYTES ABSOLUTE AUTO 0.63 K/mm3 (0.16-1.47); MONOCYTES PERCENT AUTO 6 % (4-13); Mean Corpuscular HGB 30.7 pg (26.0-34.0); Mean Corpuscular HGB Conc 31.2 g/dL (31.5-36.5); Mean Corpuscular Volume 98 fL (80-100); Mean Platelet Volume 9.7 fL (9.1-12.4); NEUTROPHILS PERCENT AUTO 75 % (41-73); Platelet Count 304 K/mm3 (150-400); RDW Standard Deviation 55.6 fL (35.1-46.3); Red Blood Cell Count 3.22 M/mm3 (3.80-5.20)
[2019-06-08 10:25] LABS: Alanine Aminotransfer (ALT/SGP 28 U/L (12-78); Albumin, Blood 3.1 g/dL (3.4-5.0); Albumin/Globulin Ratio 0.8 (0.8-1.8); Alk Phos 92 U/L (50-136); Anion Gap 5 mmol/L (6-16); Aspartate Aminotrans (AST/SGOT 23 U/L (12-37); Bilirubin, Total 0.9 mg/dL (0.1-1.0); Blood Urea Nitrogen 24 mg/dL (8-24); Bun/Creatinine Ratio 33.6 (12.0-20.0); CO2, Blood 31 mmol/L (21-32); Calcium, Blood 10.1 mg/dL (8.5-10.1); Chloride, Blood 103 mmol/L (98-108); Creatinine, Blood 0.71 mg/dL (0.40-1.00); Globulin, Blood 3.9 g/dL (2.2-4.0); Glomerular Filtration Rate >60 (60-); Glucose, Blood 146 mg/dL (70-99); Potassium, Blood 3.7 mmol/L (3.5-5.5); Sodium, Blood 139 mmol/L (136-145)
[2019-06-08] MEDS ORDERED: ASPI81CH PO (14:43)
[2019-06-08] MEDS ORDERED: ATOR80 PO (14:43)
[2019-06-08] MEDS ORDERED: Laxative Suppos10 MG PR (14:44)
[2019-06-08] MEDS ORDERED: DOCU100 PO (14:44)
[2019-06-08] MEDS ORDERED: FURO40 PO (14:45)
[2019-06-08] MEDS ORDERED: HALO2 PO (14:47)
[2019-06-08] MEDS ORDERED: LORA.5 PO (14:49)
[2019-06-08] MEDS ORDERED: ALBU3IS INH (14:49)
[2019-06-08] MEDS ORDERED: Milk Of Ma400 MG/5 M PO (14:50)
[2019-06-08] MEDS ORDERED: MELA3 PO (14:50)
[2019-06-08] MEDS ORDERED: METO25ER PO (14:51)
[2019-06-08] MEDS ORDERED: Pedi-Dri 100,0060 GM TOP (14:51)
[2019-06-08] MEDS ORDERED: Percocet 5-3251 EACH PO (14:52)
[2019-06-08] MEDS ORDERED: POTCHL20ER PO (14:52)
[2019-06-08] MEDS ORDERED: SENN187 PO (14:53)
[2019-06-08] MEDS ORDERED: TICA90TA PO (14:53)
--- NOTE | 2019-06-08 18:21 | NUR ---
SHIFT SUMMARY: PATIENT ALERT; HX ALZHEIMER'S; ORIENTED TO SELF AND FAMILY; COOPERATIVE WITH CARE. HX CPR X2 THIS VISIT; EXTENSIVE BRUISING T/O; MEDICATED FOR PAIN PER EMAR. PATIENT PULLED PICC LINE THIS AM; CURRENTLY NO IV ACCESS. O2 @ 2L VIA NC; PATIENT FREQUENTLY REMOVES. ASPIRATION PRECAUTIONS; MEDS WHOLE c APPLESAUCE UPRIGHT; NECTAR-THICK LIQUIDS; NO STRAWS. EXPECTED D/C TO [facility] THIS SHIFT. WCTM.
--- NOTE | 2019-06-08 20:18 | NUR ---
PT D/C TO [facility]. REPORT CALLED IN TO STAFF. PT TRANSPORTED VIA WHEELCHAIR. PT IN NO DISTRESS.
== END 2019-06-08 19:55 | DRG 246 ==
LOC: ER 23:57 → ICUE 05-27 00:09 → EDBD 05-27 00:09 → ICUW 05-27 00:09 → MEDS 05-27 00:09 → ICUE 05-27 00:51 → ICUW 05-31 23:25 → MEDS 06-03 09:01
PROVIDERS: Emergency Medicine; Hospitalist; Internal Medicine; Internal Medicine Critical Care Medicine; ADMIT Internal Medicine Interventional Cardiology
PROC: 4A023N7 Measurement of Cardiac Sampling and Pressure, Left Heart, Percutaneous Approach (ICD-10-PCS; principal; 2019-05-27)
PROC: 027034Z Dilation of Coronary Artery, One Artery with Drug-eluting Intraluminal Device, Percutaneous Approach (ICD-10-PCS; 2019-05-27)
PROC: B211YZZ Fluoroscopy of Multiple Coronary Arteries using Other Contrast (ICD-10-PCS; 2019-05-27)
PROC: 0BH17EZ Insertion of Endotracheal Airway into Trachea, Via Natural or Artificial Opening (ICD-10-PCS; 2019-05-27)
PROC: 5A1955Z Respiratory Ventilation, Greater than 96 Consecutive Hours (ICD-10-PCS; 2019-05-27)
PROC: 3E033XZ Introduction of Vasopressor into Peripheral Vein, Percutaneous Approach (ICD-10-PCS; 2019-05-27)
PROC: 5A12012 Performance of Cardiac Output, Single, Manual (ICD-10-PCS; 2019-05-27)
DX: I21.19 ST elevation (STEMI) myocardial infarction involving other coronary artery of inferior wall (principal); J69.0 Pneumonitis due to inhalation of food and vomit; I46.9 Cardiac arrest, cause unspecified; J96.00 Acute respiratory failure, unspecified whether with hypoxia or hypercapnia; G93.1 Anoxic brain damage, not elsewhere classified; R57.9 Shock, unspecified; I10 Essential (primary) hypertension; F03.90 Unspecified dementia, unspecified severity, without behavioral disturbance, psychotic disturbance, mood disturbance, and anxiety; R13.10 Dysphagia, unspecified; Z79.82 Long term (current) use of aspirin; F17.210 Nicotine dependence, cigarettes, uncomplicated; E87.6 Hypokalemia; D64.9 Anemia, unspecified; R73.9 Hyperglycemia, unspecified
CPT/HCPCS: 31720; 36415; 36430; 36556; 36569; 36600; 51702; 71045; 80048; 80053; 80069; 80076; 82330; 82803; 82947; 83036; 83605; 83735; 84100; 84484; 85014; 85018; 85025; 85347; 85610; 85730; 86850; 86900; 86901; 86923; 87015; 87070; 87077; 87116; 87185; 87186; 87205; 87206; 92526; 92610; 92941; 92950; 93005; 93010; 93306; 93458; 94003; 94640; 94760; 96361-59; 96374-59; 96375-59; 97110; 97116; 97162; 97166; 97530; 97535; 99291-25; A9270; C1725; C1751; C1757; C1769; C1876; C1887; C1894; J0282; J0461; J0692; J0696; J1265; J1630; J1644; J1815; J1940; J2060; J2250; J2405; J2704; J2920; J2997; J3010; J3246; J3475; J3480; J7030; J7040; J7050; J7060; J7070; J7120; P9016; P9041; P9046; Q9967